=== PATIENT | male | born 1970 | race Caucasian/White ===

== ENCOUNTER 2018-07-06 10:46 | Inpatient (IN) | payer BC, MEDICAID ==
[2018-07-06 11:37] LABS: ABS Basophils 0.1 10^3/ul (0-0.2); ABS Eosinophils 0 10^3/ul (0-0.6); ABS Lymphocytes 1.4 10^3/ul (1.0-4.8); ABS Monocytes 0.8 10^3/ul (0-0.8); ABS Neutrophils 10.2 10^3/ul (1.5-7.7); ABS Nucleated RBC 0.1 10^3/ul; Eosinophil % 0.1 % (0-6); Hematocrit 44 % (42-52); Hemoglobin 15.2 g/dl (14.0-18.0); Lymphocyte % 11.4 % (25-47); Mean Corpuscular HGB Conc 34 g/dl (31-36); Mean Corpuscular Hemoglobin 30 pg (27-31); Mean Corpuscular Volume 87 fL (80-94); Mean Platelet Volume 7.4 um3 (7.4-10.4); Nucleated Red Blood Cells % 0.6; Platelet Count 296 10^3/ul (150-450); Red Blood Count 5.13 10^6/ul (4.00-5.40); Red Cell Distribution Width 14 % (10.5-15); White Blood Count 12.5 10^3/ul (3.5-10.8)
[2018-07-06 11:51] LABS: EGFR Non-African American 97.1 (>60)
--- NOTE | 2018-07-06 12:13 | ED ---
Psychiatric Complaint - HPI Summary HPI Summary: This is scribe Louis Attebregina documenting for attending Oni Snow MD. Pt is a 47 y/o M presents to ED with psychiatric complaint. Assoc. Sx: confusion. Denies: fever. Patient reports that he really wants his brother to be present because he knows the full story. His family is concerned for him that he may have HI secondary to issues with ex . He reports coming to the ED to convince family that he is not going to hurt anyone. Patient was not answering his brothers phone calls this AM and was found walking 6 miles from his home en route to his ex 's house. He reportedly had a shirt and an AA pamphlet. PMHx: bipolar. Meds: HTCZ, potassium. Brother reports he has been off of meds for his bipolar disorder for 8-10 years in which he has experienced a steady decline in his mental health. Patient reports having gotten a tattoo on his R foot in [place]. PMHx: anger issues. Denies SI. Denies HI but reports violent tendencies. I, Dr. Snow, personally performed the services described in this documentation as scribed in my presence and it is both accurate and complete. - History Of Current Complaint Chief Complaint: EDMentalHealth Time Seen by Provider: 07/06/18 11:00 Hx Obtained From: Patient Onset/Duration: Gradual Onset, Lasting Weeks, Still Present Timing: Constant Aggravating Factor(s): Recent Stress Alleviating Factor(s): Nothing Associated Signs And Symptoms: Positive: Confused Related History: Positive For: Prior Psychiatric Issues Has Homicidal: Denies: Thoughts - Allergies/Home Medications Allergies/Adverse Reactions: Allergies Allergy/AdvReac Type Severity Reaction Status Date / Time No Known Allergies Allergy Verified 07/06/18 10:48 PMH/Surg Hx/FS Hx/Imm Hx Previously Healthy: No - bipolar disorder off medication Cardiovascular History: Reports: Hx Hypertension Infectious Disease History: Yes Infectious Disease History: Denies: Traveled Outside the [place] in Last 30 Days - Family History Known Family History: Positive: Other - Bipolar - Social History Alcohol Use: Rare Substance Use Type: Reports: None Smoking Status (MU): Unknown if Ever Smoked - Pt is confused Review of Systems Negative: Fever Gastrointestinal: Negative Genitourinary: Negative Neurological: Negative Positive: Other - POS: confused. All Other Systems Reviewed And Are Negative: Yes Physical Exam - Summary Physical Exam Summary: Appearance: Well appearing, no pain distress Skin: warm, dry, reflects adequate perfusion Head/face: normal Eyes: EOMI, ALFIE ENT: normal Neck: supple, non-tender Respiratory: CTA, breath sounds present Cardiovascular: RRR, pulses symmetrical Abdomen: non-tender, soft Bowel Sounds: present Musculoskeletal: normal, strength/ROM intact Neuro: normal, sensory motor intact, A&Ox3 Triage Information Reviewed: Yes Vital Signs On Initial Exam: Initial Vitals Temp Pulse Resp BP Pulse Ox 97.9 F 119 16 180/100 95 07/06/18 10:48 07/06/18 10:48 07/06/18 10:48 07/06/18 10:48 07/06/18 10:48 Vital Signs Reviewed: Yes Appearance: Positive: Well-Appearing, No Pain Distress Skin: Positive: Warm, Skin Color Reflects Adequate Perfusion, Dry Eyes: Positive: Normal ENT: Positive: Pharynx normal Respiratory/Lung Sounds: Positive: Clear to Auscultation Cardiovascular: Positive: RRR Musculoskeletal: Positive: Normal, Strength/ROM Intact Neurological: Positive: Normal, Sensory/Motor Intact, Alert, Oriented to Person Place, Time Psychiatric: Positive: Other - Flat affect. Disorganized thinking. Patient indicates hostile tendencies. AVPU Assessment: Alert - Randolph Coma Scale Best Eye Response: 4 - Spontaneous Best Motor Response: 6 - Obeys Commands Best Verbal Response: 5 - Oriented Coma Scale Total: 15 Diagnostics - Vital Signs Vital Signs Temp Pulse Resp BP Pulse Ox 07/06/18 11:55 99.5 F 81 16 175/97 99 07/06/18 10:48 97.9 F 119 16 180/100 95 - Laboratory Lab Results: Lab Results 07/06/18 07/06/18 Range/Units 11:11 11:15 WBC 12.5 H (3.5-10.8) 10^3/ul RBC 5.13 (4.00-5.40) 10^6/ul Hgb 15.2 (14.0-18.0) g/dl Hct 44 (42-52) % MCV 87 (80-94) fL MCH 30 (27-31) pg MCHC 34 (31-36) g/dl RDW 14 (10.5-15) % Plt Count 296 (150-450) 10^3/ul MPV 7.4 (7.4-10.4) um3 Neut % (Auto) 81.7 (38-83) % Lymph % (Auto) 11.4 L (25-47) % [place] % (Auto) 6.3 (0-7) % Eos % (Auto) 0.1 (0-6) % Baso % (Auto) 0.5 (0-2) % Absolute Neuts (auto) 10.2 H (1.5-7.7) 10^3/ul Absolute Lymphs (auto) 1.4 (1.0-4.8) 10^3/ul Absolute Monos (auto) 0.8 (0-0.8) 10^3/ul Absolute Eos (auto) 0 (0-0.6) 10^3/ul Absolute Basos (auto) 0.1 (0-0.2) 10^3/ul Absolute Nucleated RBC 0.1 10^3/ul Nucleated RBC % 0.6 Sodium 139 (135-145) mmol/L Potassium 3.7 (3.5-5.0) mmol/L Chloride 101 (101-111) mmol/L Carbon Dioxide 28 (22-32) mmol/L Anion Gap 10 (2-11) mmol/L BUN 12 (6-24) mg/dL Creatinine 0.84 (0.67-1.17) mg/dL Est GFR ( Amer) 117.5 (>60) Est GFR (Non-Af Amer) 97.1 (>60) BUN/Creatinine Ratio 14.3 (8-20) Glucose 131 H (70-100) mg/dL Calcium 9.7 (8.6-10.3) mg/dL Total Bilirubin 1.30 H (0.2-1.0) mg/dL AST 28 (13-39) U/L ALT 18 (7-52) U/L Alkaline Phosphatase 54 (34-104) U/L Total Protein 7.8 (6.4-8.9) g/dL Albumin 5.0 (3.2-5.2) g/dL Globulin 2.8 (2-4) g/dL Albumin/Globulin Ratio 1.8 (1-3) TSH Pending Salicylates Pending Acetaminophen Pending Serum Alcohol Pending Result Diagrams: 07/06/18 11:15 07/06/18 11:11 Lab Statement: Any lab studies that have been ordered have been reviewed, and results considered in the medical decision making process. Course/Dx - Course Course Of Treatment: Patient with history of bipolar disorder off his medications has been perseverating over a relationship with a woman. He indicates that he has been hostile the past. He states that he is here to ensure that he doesn't hurt anybody. He demonstrates disorganized thinking with concern for psychosis. He had medical clearance performed by me and then was evaluated by crisis. Following evaluation it was decided that he be admitted for further evaluation and treatment by psychiatry. - Differential Dx/Clinical Impression Differential Diagnosis/HQI/PQRI: Positive: Acute Psychosis, Alcohol Intoxication , Anxiety, Bipolar Disorder, Depression Provider Diagnosis: Bipolar disorder with psychotic features Discharge - Sign-Out/Discharge Documenting (check all that apply): Patient Departure - Discharge Plan Condition: Stable Disposition: ADMITTED TO [facility] Referrals: Consuelo Delcid NP [Primary Care Provider] - - Billing Disposition and Condition Condition: STABLE Disposition: Admitted to [facility]
[2018-07-06 12:30] LABS: Urine Appearance Clear; Urine Blood Negative (Negative); Urine Color Colorless; Urine Ketones Trace (Negative); Urine Protein Negative (Negative); Urine Specific Gravity 1.003 (1.010-1.030); Urine Urobilinogen Negative (Negative)
[2018-07-06] MEDS ORDERED: Al Hydrox/Mg Hydrox/Simet LIQ* 30 ML UDC PO PRN (14:48)
[2018-07-06] MEDS: Nicotine GUM* 2 MG PO PRN ×2 (17:59→22:25)
[2018-07-06] MEDS: Nicotine Patch Removal NOTE PATCH OFF SCH (22:21)
[2018-07-07] MEDS: Nicotine Inhaler* 10 MG AMP INH PRN ×4 (04:06→21:57)
[2018-07-07] MEDS ORDERED: OLANzapine TAB* 10 MG PO ONE (04:14)
[2018-07-07] MEDS: Nicotine GUM* 2 MG PO PRN ×4 (05:31→21:57)
[2018-07-07] MEDS: Nicotine PATCH 14 MG/24 HR* PATCH TRANSDERM SCH (08:51)
[2018-07-07] MEDS: Vitamin THERAPEUTIC TAB PO SCH (08:52)
[2018-07-07] MEDS: Acetaminophen TAB* 325 MG PO PRN (11:37)
[2018-07-07] MEDS: Mouth Piece, Nicotine* 1 EACH CARTRIDGE INH SCH (11:37)
[2018-07-07] MEDS: OLANzapine TAB* 10 MG PO SCH (21:53)
[2018-07-07] MEDS: Lithium Carbonate TAB* 300 MG PO SCH (21:54)
[2018-07-07] MEDS: Nicotine Patch Removal NOTE PATCH OFF SCH (21:59)
--- NOTE | 2018-07-07 23:30 | HP ---
HISTORY AND PHYSICAL: DATE OF ADMISSION: 07/06/18 IDENTIFYING DATA: Avtar is a 47-year-old , unemployed, domiciled male who was referred by his brother and he was admitted on emergency status. SOURCE OF INFORMATION: Patient presents as psychotic and he is a poor historian. This note is dictated based on review of admission data and limited interview with the patient. 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 Patient related, that on the day he presented, he was walking from [place] towards [place] to get a ride to Jazmin' s house in [place] when he was met by his brother who had gone to his house to check on him and not seeing him started looking for him. Notes indicate that the brother drove the patient back home. At home, the patient got out of the car, took all his clothes off, and threw a hunting knife that he had hidden on his person in the bushes. His brother, Geovanny, called the police and brought him to the hospital. During his evaluation, the patient was disorganized, making bizarre sexual statements, saying he was on his way to [place] this morning to have sex with Jazmin and that he is not butts. Then, he stated "we can cut through the jose roberto, I do not remember the last time I masturbated, I think it was a decade ago here in the ED, I cannot remember what happened last time, I do not remember when I last slept." REVIEW OF PSYCHIATRIC SYMPTOMS: The patient reports previous diagnosis of depression but denies having felt depressed in recent months. He endorses excessive worrying, irritability, muscle tension, he was prescribed clonazepam and alprazolam at different times in the past by his primary care provider, Consuelo Delcid, nurse practitioner, at [facility]. He has diagnosis of bipolar disorder, has had periods of dominik with insomnia, decreased need for sleep, increased goal-directness, hypersexuality and other other activities with potential for consequences, racing thoughts, pressured speech, and grandiosity. Patient also reports that he is a recovering alcoholic that he started drinking casually in high school, became a binge drinker in college until separation from his in January 2014. He has been sober since June 2017. He does smoke cannabis on occasions. He denies the use of other illicit drugs. PAST PSYCHIATRIC HISTORY: The patient reports this is his first inpatient psychiatric admission. At age 16, he had this first manic/psychotic break while he was in college. His parents took him home to an emergency room in [place], [place], where he was evaluated and was referred for outpatient psychiatric treatment. He has had trials of lithium and Depakote in the past that he said he self-discontinued because of sexual side effect. He denies previous chago suicide attempt. He denies any history of violence. PAST MEDICAL HISTORY: Remarkable for hypertension, for which he is on Hydrochlorothiazide and Potassium supplementation. He is followed at [facility] by Consuelo Delcid, family nurse practitioner. REVIEW OF MEDICAL SYMPTOMS: Negative. PHYSICAL EXAMINATION GENERAL: He is a well-appearing 47-year-old white male who does not appear to be in any acute physical distress. He is alert and oriented x3. ADMISSION VITAL SIGNS: Blood pressure 125/97, pulse 81, respirations 16, temperature 99.5. HEENT: Head: Atraumatic, normocephalic, symmetrical. Eyes: PERRLA. Tympanic membranes intact. Sclerae anicteric. Conjunctivae clear. NECK: Trachea midline, freely mobile. No cervical lymphadenopathy. No nuchal rigidity. LUNGS: Clear to auscultation bilaterally. HEART: Regular rate and rhythm. S1, S2. No murmurs, gallops, or rubs. BREASTS: No mass or discharge. ABDOMEN: Soft, nontender. No masses, organomegaly, or rebound tenderness. No scars noted. Active bowel sounds in all 4 quadrants. NEUROLOGIC: Cranial nerves II through XII are intact. Cerebellar function intact. Muscle strength grade 5/5 in all 4 extremities. STRUCTURAL EXAM: The patient examined in both supine and upright positions. No gross AP or lateral asymmetry. Gait and movement are within normal limits. GENITAL: Exam not performed. RECTAL: Exam not performed. SKIN: Skin texture, turgor, and pigmentation are within normal limits. He has male pattern baldness. LABORATORY DATA: Laboratories on admission: CBC shows WBC of 12.5, lymphocyte percentage of 11.4, and absolute neutrophil is 10.2. Complete metabolic panel shows nonfasting glucose of 131 and total bilirubin was 1.30. Urinalysis shows specific gravity of 1.003 and trace of ketones. Urine toxicology screen is negative for all the tested substances. FAMILY HISTORY: Family history of bipolar disorder in 2 of his brothers and his maternal grandfather and in a maternal cousin. His father and paternal grandfather also both had bipolar disorder and his maternal great- grandfather completed suicide. PERSONAL AND SOCIAL HISTORY: Avtar was born in [place], [place]. He grew up with both his parents who are now both . He has an older brother, a twin brother, a younger sister, and an a youngest brother. He has graduated from high school, attended [employer] where he obtained a bachelor of science in accounting. He was for about 16 years. He has a son who is 17 years old. Relationship with both his ex- and son are strained. Het worked for [employer] until last month when he asserts he was fired after discovering possible accounting fraud that the prollie was engaging in. He reports having been actively looking for a job. 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 He identified as being heterosexual, reports that he is now currently in a relationship with "Jazmin," and they frequently have satisfying sex. Patient is worried about starting medications because he said he wanted to maintain his peak performance. MENTAL STATUS EXAMINATION: Finds a 47-year-old white male with balding hair pattern and rimmed glasses who looks his stated age. He is poorly groomed, unshaven, he walks around wrapped in bedsheet. He makes intense eye contact. He frequently looks over his shoulders. He presents as a psychotically related. He exhibits normal psychomotor activity. No abnormal movements observed. Speech is spontaneous; normal rate, rhythm, and volume. His affect is anxious. Mood is dysphoric. Thought process remarkable for evidence of paranoid and persecutory delusions. He denies auditory or visual hallucinations. His insight and judgment are grossly impaired. Impulse control is fair in the setting. He is alert. He is oriented to time, place, and person. Attention, memory, and concentration are all poor. Fund of knowledge is adequate. Intelligence is estimated to be in normal average range. SUMMARY: First inpatient psychiatric admission for this 47-year-old male with documented history of bipolar and anxiety disorders; no current outpatient care and no current medication trials, who was referred by his brother in a manic state and was admitted for safety after he was found carrying a knife. Medical history is remarkable for high blood pressure. There is a significant family history of bipolar disorder on both sides of his family. Patient has a past history of alcohol dependence in remission. He admits to smoking cannabis occasionally. He describes stressors of a recent termination from a job, strained relationship with his ex- and with his son and lack of financial support. DIAGNOSTIC IMPRESSIONS: 1. Bipolar 1 disorder. Current episode manic, severe, with psychotic features. 2. Alcohol dependence, in sustained remission. 3. Unspecified anxiety disorder. 4. Cannabis dependence. TREATMENT PLAN: 1. Admit to mental health unit, 15-minute checks, full code status. Legal status is emergency. 2. Initial comprehensive milieu individual and group psychotherapeutic supports. 3. Medication management. Patient has consented to trial of lithium and Olanzapine to regulate mood and sleep after hearing of the indication, risks, benefits, side effects, and alternatives. 4. Discharge planning will involve connecting him with outpatient psychiatric providers when he is psychiatrically stable and ready for discharge. [id number]/CPS #: [id number] LEAH
[2018-07-08] MEDS: Nicotine GUM* 2 MG PO PRN ×4 (09:08→21:04)
[2018-07-08] MEDS: Vitamin THERAPEUTIC TAB PO SCH (09:08)
[2018-07-08] MEDS: Lithium Carbonate TAB* 300 MG PO SCH ×2 (09:08→21:01)
[2018-07-08] MEDS: Acetaminophen TAB* 325 MG PO PRN (09:09)
[2018-07-08] MEDS: Nicotine Inhaler* 10 MG AMP INH PRN ×4 (09:10→21:04)
[2018-07-08] MEDS: Nicotine PATCH 14 MG/24 HR* PATCH TRANSDERM SCH (09:14)
--- NOTE | 2018-07-08 12:17 | PN ---
Subjective - Subjective Date of Service: 07/08/18 Service Type: [id number] Hosp care 15 min low complexity Subjective: Patient was seen by self, discussed with treatment team, chart was reviewed. Patient has been compliant with his medications, no reported side effects. Patient reports some improvement in his symptoms, less irritable, less disorganized, less manic, some improvement in sleep, less paranoia. Patient sleeping has been better than before. Patient eating has been fair. Patient has been cooperative with staff and attending some groups. Patient behavior has been in better control. Patient mood was anxious and dysphoric. Patient has been reporting no suicidal or homicidal ideation. No psychotic symptoms of hallucinations. Objective - Appearance Appearance: Healthy Appearing Dysmorphic Features: No Hygiene: Normal Grooming: Fairly Well Kept - Behavior Psychomotor Activities: Abnormal-Decreased - Attitude and Relatedness Attitude and Relatedness: Superficially Cooperative Eye Contact: Fair - Speech Quality: Unpressured Latencies: Long Quantity: Terse - Mood Patient's Decription of Mood: "better" - Affect Observed Affect: Constricted Affect Consistent with: Dysphoria - Thought Process Patient's Thought Process: Goal Directed Thought Content: Yes Paranoid Ideation, No Passive Wish, No Suicidal Planning, No Homicidal Ideation - Sensorium Experiencing Hallucinations: No, Sensorium is Clear Type of Hallucinations: Visual: No, Auditory: No, Command: No - Level of Consciousness Level of Consciousness: Alert Orientation: Yes Intact, Yes Orientated to Time, Yes Orientated to Place, Yes Orientated to Person - Impulse Control Impulse Control: Intact - Insight and Judgement Insight and Judgement: Poor - but improving - Group Participation Particating in Group Activities: Yes - Medication Management Medication Management Adherence: Yes Assessment - Assessment Merits Inpatient Hospitalization: For Immediate Safety, For Stabilization, For Discharge Planning Inpatient DSM-V Dx: F31.2 Clinical Impression: First inpatient psychiatric admission for this 47-year-old male with documented history of bipolar disorder and anxiety disorder. No current outpatient care and no current medication trials, who was referred by his brother in a manic state and was admitted for safety after he was found carrying a knife. Medical history is remarkable for high blood pressure. There is a significant family history of bipolar disorder on both sides of his family. Patient has a past history of alcohol abuse and does admit to still smoking cannabis occasionally. He describes stressors of a recent termination from a job. Strained relationship with his ex- and with his son and lack of financial support. Plan - Plan Treatment Plan: Name: VANESSA KAMARA Birthdate: 1970 [id number] - Patient continues to be hospitalized due to recent suicidal thoughts with plan , mood instability, anxiety and impulsivity. - Patient's medications were continued after informed consent with Zyprexa 10 mg at bedtime and [place] was increased to 450 mg BID. - Hospitalist Consult was called for HTN, as patient has high blood pressure and was reportedly taking Lisinopril/Hctz 20/12.5 mg once daily and KCl+ 20 me q BID. - Patient will be monitored for improvement and side effects. Risk and benefits were discussed. - Patient was encouraged to continue his participation in the milieu, group and individual therapy. Medications: Current Medications Acetaminophen (Tylenol Tab*) 650 mg PO Q4H PRN PRN Reason: for pain; or Temp >101 F Last Admin: 07/08/18 09:09 Dose: 650 mg Al Hydrox/Mg Hydrox/Simethicone (Maalox Plus*) 30 ml PO Q4H PRN PRN Reason: INDIGESTION Device (Nicotine Mouth Piece*) 1 each INH .[facility] Last Admin: 07/07/18 11:37 Dose: 1 each [place] Carbonate ([place] Carbonate Tab*) 300 mg PO BID [facility] Last Admin: 07/08/18 09:08 Dose: 300 mg Multivitamins (Theragran Tab*) 1 tab PO DAILY [facility] Last Admin: 07/08/18 09:08 Dose: 1 tab Nicotine (Nicotine Inhaler*) 10 mg INH Q2H PRN PRN Reason: CRAVING Last Admin: 07/08/18 11:57 Dose: 10 mg Nicotine (Nicotine Patch 14 Mg/24 Hr*) 1 patch TRANSDERM DAILY [facility] Last Admin: 07/08/18 09:14 Dose: Not Given Nicotine Polacrilex (Nicotine Gum*) 2 mg PO Q2H PRN PRN Reason: CRAVING Last Admin: 07/08/18 11:57 Dose: 2 mg Olanzapine (Zyprexa Tab*) 10 mg PO BEDTIME [facility] Last Admin: 07/07/18 21:53 Dose: 10 mg Pharmacy Profile Note (Nicotine Patch Removal Note*) 1 note PATCH OFF 2100 [facility] Last Admin: 07/07/18 21:59 Dose: Not Given
[2018-07-08] MEDS: amLODIPine TAB* 5 MG PO SCH (18:09)
--- NOTE | 2018-07-08 20:28 | CONS ---
CONSULTATION NOTE: DATE OF CONSULT: 07/08/18 REASON FOR CONSULT: Hypertension and psychiatry team wondering why HCTZ and potassium supplementation has been discontinued since his presentation in the ED. HISTORY OF PRESENT ILLNESS/HOSPITAL COURSE: The patient is a 47-year-old gentleman with history of bipolar disorder type 1, alcohol dependence , and anxiety disorder as well as hypertension, who was brought to the ED by his brother on 07/06/18 for agitation and not answering his brother's phone calls the morning of his presentation in the ED. He also reportedly only had a shirt and a pamphlet with him at that time. He mentioned that he was walking from [place] towards [place] to get a ride to Jazmin's house in [place] and Jazmin is a woman that he is supposedly obsessed on having some sexual relationships with. He then subsequently met his brother who had gone to his house to check on him and not seeing him, started looking for him. His brother , Geovanny, then subsequently called the police when he could not find Avtar and brought him to the hospital and he himself came with his brother to prove to him that he is not going to hurt himself nor anyone. However, upon psychiatric evaluation, he was admitted by Psychiatry to the [facility] for unknown reasons. His HCTZ has not been continued since. PAST MEDICAL AND SURGICAL HISTORY: 1. Bipolar I disorder. 2. Alcohol dependence 3. Anxiety disorder. 4. Cannabis dependence. 5. Hypertension, on HCTZ and potassium supplementations at home. No known previous surgical history. ALLERGIES: NKDA. FAMILY HISTORY: Reports a family history of bipolar disorder in 2 of his brothers and maternal grandfather and maternal cousin. His father and paternal grandfather also had bipolar disorder and maternal great grandfather committed suicide. Diabetes mellitus in his paternal grandfather. Skin and esophageal cancer in his father who was also a previous smoker. Bladder cancer , his mother. SOCIAL HISTORY: He mentions previous history of alcohol abuse, but claims that he has been sober for at least 1 year. Denies any history of significant cigarette smoking. He has had some history with smoking marijuana. Denies any history of IV drug use nor other illicit drug use. REVIEW OF SYSTEMS: He denied any headaches, dizziness, fevers, chills, nausea, vomiting, chest pain, shortness of breath, increased cough or sputum production , abdominal pain, diarrhea, constipation, pain and/or increased frequency on urination, myalgias, arthralgias, throat pain, or new skin lesions. The rest of the 14-point review of systems were otherwise unremarkable. PHYSICAL EXAM: Shows the most recent vital signs of records with temperature of 98.5 degrees Fahrenheit, 78 beats per minute heart rate, 16 per minute respiratory rate, saturating at 100% on room air, blood pressure of 158/85. General Appearance: The patient is awake, alert, and oriented x3, not in acute distress. HEENT: Normocephalic, atraumatic. PERRLA. Extraocular muscles intact. Negative for icterus. Moist oral mucosa. Negative throat erythema. Neck is soft, supple with no cervical lymphadenopathy. No JVD. Heart: S1, S2 within normal limits. Regular rate and rhythm. No murmurs, rubs, and gallops. Chest: Clear to auscultation bilaterally. Good air entry. No wheezes, rales, or rhonchi. Abdomen is soft, nondistended, nontender. Normoactive bowel sounds times 4 quadrants. Extremities: No cyanosis, clubbing, or edema. Psychiatric: No active psychosis or hallucinations at this time. DIAGNOSTIC STUDIES/LAB DATA: Most recent and pertinent laboratories show CBC with a WBC mildly elevated at 12.5. Sodium and potassium levels were found to be normal. BUN and creatinine were normal. Glucose mildly elevated at 131. Total bilirubin at 1.30. The rest of the LFTs are normal. LDL of 82. Triglyceride of 77. Urinalysis appears unremarkable with a specific gravity of 1.003. Urine tox screen is negative. ASSESSMENT AND PLAN: Hypertension, stage 2. At this time, we will place the patient on amlodipine and would recommend a heart-healthy diet if needed and after 2 days of observation on being on amlodipine and if his blood pressure is still above 140/90, one can start either a low dose CARLOS inhibitor for synergy. I will not prescribe a diuretic at this point to avoid replenishing his potassium stores with diuresis of electrolytes. I would recommend to continuously observe his blood pressure per [facility] protocol and please call us with any questions. Thank you for having us participate in his care and management. We will follow the blood pressure along with you. Please do call us if you have any questions and/or concerns. [id number]/CPS #: [id number] MTDD
[2018-07-08] MEDS: OLANzapine TAB* 10 MG PO SCH (21:00)
[2018-07-08] MEDS: Nicotine Patch Removal NOTE PATCH OFF SCH (22:00)
[2018-07-09] MEDS: amLODIPine TAB* 5 MG PO SCH (08:00)
[2018-07-09] MEDS: Lithium Carbonate TAB* 300 MG PO SCH ×2 (08:01→20:41)
[2018-07-09] MEDS: Nicotine PATCH 14 MG/24 HR* PATCH TRANSDERM SCH (08:03)
[2018-07-09] MEDS: Vitamin THERAPEUTIC TAB PO SCH (08:03)
[2018-07-09] MEDS ORDERED: Mouth Piece, Nicotine* 1 EACH CARTRIDGE ONE (08:07)
[2018-07-09] MEDS: Nicotine Inhaler* 10 MG AMP INH PRN ×2 (08:08→13:55)
[2018-07-09] MEDS: Nicotine GUM* 2 MG PO PRN ×3 (08:08→19:38)
[2018-07-09] MEDS: Acetaminophen TAB* 325 MG PO PRN ×2 (10:00→19:37)
--- NOTE | 2018-07-09 13:32 | PN ---
Subjective - Subjective Date of Service: 07/09/18 Service Type: 45046 Hosp care 15 min low complexity Subjective: Patient was seen by self, discussed with treatment team, chart was reviewed. Patient has been compliant with his medications, no reported side effects. Patient reports some improvement in his symptoms, less irritable, less disorganized, less manic, improvement in sleep, no paranoia. Patient sleeping has been better. Patient eating has been fair. Patient has been cooperative with staff and attending some groups. Patient behavior has been in better control. Patient mood was less anxious and dysphoric. Patient has been reporting no suicidal or homicidal ideation. No psychotic symptoms of hallucinations. Met with patient's brother who was concerned about patient as he was present during the time of hospitalization. treatment and discharge planning were discussed with presence of patient and his brother. Patient was accepting of it but brother was hesitant about that and stated "family would not agree with the discharge on Sunday". Also discussed about order of protection that his ex- will be placing against him and questionable application of emergency sole custody for which patient will need to appear in the court. Patient states that he is disappointed about that but will follow the procedure. Patient reports that he has to set his priority and his son and job comes first. Patient will search for a job to support his son and then he still wants to keep friendship with this person Jazmin. But not sure if they are going to be more than friends. Patient also stated that he will keep his communication better with his brothers in [place] through phone and meet them intermittently. Objective - Appearance Appearance: Healthy Appearing Dysmorphic Features: No Hygiene: Normal Grooming: Fairly Well Kept - Behavior Psychomotor Activities: Normal Exhibits Abnormal Movement: No - Attitude and Relatedness Attitude and Relatedness: Cooperative Eye Contact: Fair - Speech Quality: Unpressured Latencies: Normal Quantity: Appropriate - Mood Patient's Decription of Mood: "Okay" - Thought Process Patient's Thought Process: Goal Directed Thought Content: No Passive Wish, No Suicidal Planning, No Homicidal Ideation, No Paranoid Ideation - Sensorium Experiencing Hallucinations: No, Sensorium is Clear Type of Hallucinations: Visual: No, Auditory: No, Command: No - Level of Consciousness Level of Consciousness: Alert Orientation: Yes Intact, Yes Orientated to Time, Yes Orientated to Place, Yes Orientated to Person - Impulse Control Impulse Control: Intact - Insight and Judgement Insight and Judgement: Fair - is compliant with treatment and showing understanding in his illness - Group Participation Particating in Group Activities: Yes - Medication Management Medication Management Adherence: Yes Assessment - Assessment Merits Inpatient Hospitalization: For Immediate Safety, For Stabilization, For Discharge Planning Inpatient DSM-V Dx: F31.2 Clinical Impression: First inpatient psychiatric admission for this 47-year-old male with documented history of bipolar disorder and anxiety disorder. No current outpatient care and no current medication trials, who was referred by his brother in a manic state and was admitted for safety after he was found carrying a knife. Medical history is remarkable for high blood pressure. There is a significant family history of bipolar disorder on both sides of his family. Patient has a past history of alcohol abuse and does admit to still smoking cannabis occasionally. He describes stressors of a recent termination from a job. Strained relationship with his ex- and with his son and lack of financial support. Plan - Plan Treatment Plan: Name: VANESSA KAMARA Birthdate: 1970 [id number] - Patient continues to be hospitalized due to recent suicidal thoughts with plan , mood instability, anxiety and impulsivity. - Patient's medications were continued at Zyprexa 10 mg at bedtime and Duque at 450 mg BID. - Hospitalist started patient on Amlodipine 10 mg PO Daily and has shown improvement in B.P, will continue to monitor. - Patient will be monitored for improvement and side effects. Risk and benefits were discussed. - Patient was encouraged to continue his participation in the milieu, group and individual therapy. Medications: Current Medications Acetaminophen (Tylenol Tab*) 650 mg PO Q4H PRN PRN Reason: for pain; or Temp >101 F Last Admin: 07/09/18 10:00 Dose: 650 mg Al Hydrox/Mg Hydrox/Simethicone (Maalox Plus*) 30 ml PO Q4H PRN PRN Reason: INDIGESTION Amlodipine Besylate (Norvasc Tab*) 10 mg PO DAILY [facility] Last Admin: 07/09/18 08:00 Dose: 10 mg Device (Nicotine Mouth Piece*) 1 each INH .CARTRIDGE [facility] Last Admin: 07/07/18 11:37 Dose: 1 each Duque Carbonate (Duque Carbonate Tab*) 450 mg PO BID [facility] Last Admin: 07/09/18 08:01 Dose: 450 mg Multivitamins (Theragran Tab*) 1 tab PO DAILY [facility] Last Admin: 07/09/18 08:03 Dose: 1 tab Nicotine (Nicotine Inhaler*) 10 mg INH Q2H PRN PRN Reason: CRAVING Last Admin: 07/09/18 08:08 Dose: 10 mg Nicotine (Nicotine Patch 14 Mg/24 Hr*) 1 patch TRANSDERM DAILY [facility] Last Admin: 07/09/18 08:03 Dose: 1 patch Nicotine Polacrilex (Nicotine Gum*) 2 mg PO Q2H PRN PRN Reason: CRAVING Last Admin: 07/09/18 08:08 Dose: 2 mg Olanzapine (Zyprexa Tab*) 10 mg PO BEDTIME [facility] Last Admin: 07/08/18 21:00 Dose: 10 mg Pharmacy Profile Note (Nicotine Patch Removal Note*) 1 note PATCH OFF 2100 [facility] Last Admin: 07/08/18 22:00 Dose: Not Given
[2018-07-09] MEDS: Doxazosin TAB* 2 MG PO SCH (16:09)
[2018-07-09] MEDS: OLANzapine TAB* 10 MG PO SCH (20:41)
[2018-07-09] MEDS: Nicotine Patch Removal NOTE PATCH OFF SCH (22:02)
[2018-07-10] MEDS: Nicotine PATCH 14 MG/24 HR* PATCH TRANSDERM SCH (09:04)
[2018-07-10] MEDS: Vitamin THERAPEUTIC TAB PO SCH (09:05)
[2018-07-10] MEDS: amLODIPine TAB* 5 MG PO SCH (09:05)
[2018-07-10] MEDS: Doxazosin TAB* 2 MG PO SCH (09:06)
[2018-07-10] MEDS: Lithium Carbonate TAB* 300 MG PO SCH (09:06)
[2018-07-10] MEDS: Nicotine GUM* 2 MG PO PRN ×4 (09:10→20:38)
[2018-07-10] MEDS: Hydrochlorothiazide TAB* 25 MG PO SCH (11:15)
[2018-07-10] MEDS: Lisinopril TAB* 10 MG PO SCH (11:15)
--- NOTE | 2018-07-10 11:31 | PN ---
Subjective Date of Service: 07/10/18 Interval History: Pt is feeling well. He states he does not like all of the attention he has been getting from staff and providers. He states he has had some headache earlier this AM but it is now resolved. He denies any CP or SOB. He also states he has had a longstanding h/o white coat hypertension and wonders if his BP is up from the constant monitoring and being in the hospital. Objective Active Medications: Acetaminophen (Tylenol Tab*) 650 mg PO Q4H PRN PRN Reason: for pain; or Temp >101 F Last Admin: 07/09/18 19:37 Dose: 650 mg Al Hydrox/Mg Hydrox/Simethicone (Maalox Plus*) 30 ml PO Q4H PRN PRN Reason: INDIGESTION Amlodipine Besylate (Norvasc Tab*) 10 mg PO DAILY [facility] Last Admin: 07/10/18 09:05 Dose: 10 mg Device (Nicotine Mouth Piece*) 1 each INH .[facility]TRIDGE [facility] Last Admin: 07/07/18 11:37 Dose: 1 each Divalproex Sodium (Depakote Dr Tab(*)) 500 mg PO BID [facility] Doxazosin Mesylate (Cardura Tab*) 2 mg PO DAILY [facility] Last Admin: 07/10/18 09:06 Dose: 2 mg Hydrochlorothiazide (Hydrodiuril Tab*) 12.5 mg PO DAILY [facility] Last Admin: 07/10/18 11:15 Dose: 12.5 mg Lisinopril (Prinivil Tab*) 10 mg PO DAILY [facility] Last Admin: 07/10/18 11:15 Dose: 10 mg Multivitamins (Theragran Tab*) 1 tab PO DAILY [facility] Last Admin: 07/10/18 09:05 Dose: 1 tab Nicotine (Nicotine Inhaler*) 10 mg INH Q2H PRN PRN Reason: CRAVING Last Admin: 07/09/18 13:55 Dose: 10 mg Nicotine (Nicotine Patch 14 Mg/24 Hr*) 1 patch TRANSDERM DAILY [facility] Last Admin: 07/10/18 09:04 Dose: 1 patch Nicotine Polacrilex (Nicotine Gum*) 2 mg PO Q2H PRN PRN Reason: CRAVING Last Admin: 07/10/18 09:10 Dose: 2 mg Olanzapine (Zyprexa Tab*) 10 mg PO BEDTIME [facility] Last Admin: 07/09/18 20:41 Dose: 10 mg Pharmacy Profile Note (Nicotine Patch Removal Note*) 1 note PATCH OFF 2100 [facility] Last Admin: 07/09/18 22:02 Dose: Not Given Vital Signs - 8 hr 07/10/18 07:46 Temperature 97.6 F Pulse Rate 107 Respiratory 16 Rate Blood Pressure 184/105 (mmHg) O2 Sat by Pulse 100 Oximetry Oxygen Devices in Use Now: None Appearance: Middle aged male lying in bed, NAD Eyes: No Scleral Icterus Ears/Nose/Mouth/Throat: Mucous Membranes Moist Respiratory: Symmetrical Chest Expansion and Respiratory Effort, Clear to Auscultation Cardiovascular: NL Sounds; No Murmurs; No JVD, RRR, No Edema Abdominal: NL Sounds; No Tenderness; No Distention Extremities: No Clubbing, Cyanosis Skin: No Nodules or Sclerosis, - - scabs noted to feet bilaterally Neurological: Alert and Oriented x 3 Result Diagrams: 07/06/18 11:15 07/06/18 11:11 Additional Lab and Data: Lab Results 07/06/18 07/06/18 Range/Units 11:11 11:15 WBC 12.5 H (3.5-10.8) 10^3/ul RBC 5.13 (4.00-5.40) 10^6/ul Hgb 15.2 (14.0-18.0) g/dl Hct 44 (42-52) % MCV 87 (80-94) fL MCH 30 (27-31) pg MCHC 34 (31-36) g/dl RDW 14 (10.5-15) % Plt Count 296 (150-450) 10^3/ul MPV 7.4 (7.4-10.4) um3 Neut % (Auto) 81.7 (38-83) % Lymph % (Auto) 11.4 L (25-47) % [place] % (Auto) 6.3 (0-7) % Eos % (Auto) 0.1 (0-6) % Baso % (Auto) 0.5 (0-2) % Absolute Neuts (auto) 10.2 H (1.5-7.7) 10^3/ul Absolute Lymphs (auto) 1.4 (1.0-4.8) 10^3/ul Absolute Monos (auto) 0.8 (0-0.8) 10^3/ul Absolute Eos (auto) 0 (0-0.6) 10^3/ul Absolute Basos (auto) 0.1 (0-0.2) 10^3/ul Absolute Nucleated RBC 0.1 10^3/ul Nucleated RBC % 0.6 Sodium 139 (135-145) mmol/L Potassium 3.7 (3.5-5.0) mmol/L Chloride 101 (101-111) mmol/L Carbon Dioxide 28 (22-32) mmol/L Anion Gap 10 (2-11) mmol/L BUN 12 (6-24) mg/dL Creatinine 0.84 (0.67-1.17) mg/dL Est GFR ( Amer) 117.5 (>60) Est GFR (Non-Af Amer) 97.1 (>60) BUN/Creatinine Ratio 14.3 (8-20) Glucose 131 H (70-100) mg/dL Calcium 9.7 (8.6-10.3) mg/dL Total Bilirubin 1.30 H (0.2-1.0) mg/dL AST 28 (13-39) U/L ALT 18 (7-52) U/L Alkaline Phosphatase 54 (34-104) U/L Total Protein 7.8 (6.4-8.9) g/dL Albumin 5.0 (3.2-5.2) g/dL Globulin 2.8 (2-4) g/dL Albumin/Globulin Ratio 1.8 (1-3) TSH Pending Salicylates Pending Acetaminophen Pending Serum Alcohol Pending Assess/Plan/Problems-Billing Mr Mcghee is a 47 yo M who has a h/o HTN and bipolar disorder who was admitted to the [facility] with dominik. - Patient Problems (1) HTN (hypertension) Current Visit: Yes Status: Acute Code(s): I10 - ESSENTIAL (PRIMARY) HYPERTENSION SNOMED Code(s): 72320830 Comment: BP remains uncontrolled despite having added amlodpine and cardura. Will add lisinopril/HCTZ 08/30.5 and monitor the BP. If improved will likely stop the cardura and have the patient d/c on lisinopril/HCTZ and amlodipine. He will need close follow up with his PCP. BMP tomorrow to assess electrolytes. (2) Bipolar disorder Current Visit: Yes Status: Acute Comment: Management per psychiatry.
--- NOTE | 2018-07-10 11:33 | PN ---
Subjective - Subjective Date of Service: 07/10/18 Service Type: [id number] Hosp care 25 min moderate complexity Subjective: Patient was seen by self, discussed with treatment team, chart was reviewed. Patient has been compliant with his medications, no reported side effects. Patient reports appeared some what sad today but reports improvement in his symptoms, more regulated mood and behavior, improvement in sleep, no paranoia. Patient was served with order of protection from her ex . Patient has been avoiding so far to look into it and feels that he is not ready yet to look at it. But will read it when he is feeling better. Patient sleeping was better. Patient eating has been fair. Patient has been cooperative with staff and attending some groups. Patient behavior has been in better control. Patient has been reporting no suicidal or homicidal ideation. No psychotic symptoms of hallucinations. Patient's blood pressure continues to be elevated, discussed with Hospital and medications adjustments were made. Patient was educated about discontinuation of Marvin and switching it to Depakote due to interaction with his B.P medications, agreed with the plan. Objective - Appearance Appearance: Healthy Appearing Dysmorphic Features: No Hygiene: Normal Grooming: Fairly Well Kept - Behavior Psychomotor Activities: Normal Exhibits Abnormal Movement: No - Attitude and Relatedness Attitude and Relatedness: Cooperative Eye Contact: Fair - Speech Quality: Unpressured Latencies: Normal Quantity: Terse - Mood Patient's Decription of Mood: "Okay" - Affect Observed Affect: Depressed Affect Consistent with: Dysphoria - Thought Process Patient's Thought Process: Goal Directed Thought Content: No Passive Wish, No Suicidal Planning, No Homicidal Ideation, No Paranoid Ideation - Sensorium Experiencing Hallucinations: No, Sensorium is Clear Type of Hallucinations: Visual: No, Auditory: No, Command: No - Level of Consciousness Level of Consciousness: Alert Orientation: Yes Intact, Yes Orientated to Time, Yes Orientated to Place, Yes Orientated to Person - Impulse Control Impulse Control: Intact - Insight and Judgement Insight and Judgement: Fair - Group Participation Particating in Group Activities: Yes - Medication Management Medication Management Adherence: Yes Assessment - Assessment Merits Inpatient Hospitalization: For Immediate Safety, For Stabilization, For Discharge Planning Inpatient DSM-V Dx: F31.2 Clinical Impression: First inpatient psychiatric admission for this 47-year-old male with documented history of bipolar disorder and anxiety disorder. No current outpatient care and no current medication trials, who was referred by his brother in a manic state and was admitted for safety after he was found carrying a knife. Medical history is remarkable for high blood pressure. There is a significant family history of bipolar disorder on both sides of his family. Patient has a past history of alcohol abuse and does admit to still smoking cannabis occasionally. He describes stressors of a recent termination from a job. Strained relationship with his ex- and with his son and lack of financial support. Plan - Plan Treatment Plan: Name: VANESSA KAMARA Birthdate: 1970 [id number] - Patient continues to be hospitalized due to recent suicidal thoughts with plan , mood instability, anxiety and impulsivity. - Patient's medications were continued at Zyprexa 10 mg at bedtime, Marvin was discontinued and was started on Depakote 500mg BID with plan to titrate as toelrated. - Hospitalist started patient on Amlodipine 10 mg PO Daily, Doxazosin 2 mg Daily but continued to have elevated B.P and was restarted on his home medication Lisinopril and HCTZ. will continue to monitor. - Patient will be monitored for improvement and side effects. Risk and benefits were discussed. - Patient was encouraged to continue his participation in the milieu, group and individual therapy. Medications: Current Medications Acetaminophen (Tylenol Tab*) 650 mg PO Q4H PRN PRN Reason: for pain; or Temp >101 F Last Admin: 07/09/18 19:37 Dose: 650 mg Al Hydrox/Mg Hydrox/Simethicone (Maalox Plus*) 30 ml PO Q4H PRN PRN Reason: INDIGESTION Amlodipine Besylate (Norvasc Tab*) 10 mg PO DAILY [facility] Last Admin: 07/10/18 09:05 Dose: 10 mg Device (Nicotine Mouth Piece*) 1 each INH .CARTRIDGE [facility] Last Admin: 07/07/18 11:37 Dose: 1 each Divalproex Sodium (Depakote Dr Tab(*)) 500 mg PO BID [facility] Doxazosin Mesylate (Cardura Tab*) 2 mg PO DAILY [facility] Last Admin: 07/10/18 09:06 Dose: 2 mg Hydrochlorothiazide (Hydrodiuril Tab*) 12.5 mg PO DAILY [facility] Lisinopril (Prinivil Tab*) 10 mg PO DAILY [facility] Multivitamins (Theragran Tab*) 1 tab PO DAILY [facility] Last Admin: 07/10/18 09:05 Dose: 1 tab Nicotine (Nicotine Inhaler*) 10 mg INH Q2H PRN PRN Reason: CRAVING Last Admin: 07/09/18 13:55 Dose: 10 mg Nicotine (Nicotine Patch 14 Mg/24 Hr*) 1 patch TRANSDERM DAILY [facility] Last Admin: 07/10/18 09:04 Dose: 1 patch Nicotine Polacrilex (Nicotine Gum*) 2 mg PO Q2H PRN PRN Reason: CRAVING Last Admin: 07/10/18 09:10 Dose: 2 mg Olanzapine (Zyprexa Tab*) 10 mg PO BEDTIME [facility] Last Admin: 07/09/18 20:41 Dose: 10 mg Pharmacy Profile Note (Nicotine Patch Removal Note*) 1 note PATCH OFF 2100 [facility] Last Admin: 07/09/18 22:02 Dose: Not Given
[2018-07-10] MEDS: Acetaminophen TAB* 325 MG PO PRN (13:13)
--- NOTE | 2018-07-10 15:47 | PN ---
[facility]: Group Therapy Note - Service Type Service Type: 62022 Group Psychotherapy - Group Participation Patient Participating in Group: Yes Level of Group Participation: Attentive, Spontaneously Participate Relatedness to Group: Well Related - Attitude and Relatedness Attitude and Relatedness: Cooperative Eye Contact: Good - Additional Group Comments Group Comments: Avtar participated well. He was pleasant and easy to work with. He related well to the topic and had good information to contribute.
[2018-07-10] MEDS: OLANzapine TAB* 10 MG PO SCH (20:37)
[2018-07-10] MEDS: Divalproex DR TAB(*) 500 MG PO SCH (20:37)
[2018-07-10] MEDS: Nicotine Patch Removal NOTE PATCH OFF SCH (20:44)
[2018-07-10] MEDS ORDERED: Lithium Carbonate TAB* 300 MG PO SCH (21:00)
[2018-07-11] MEDS: Vitamin THERAPEUTIC TAB PO SCH (08:40)
[2018-07-11] MEDS: amLODIPine TAB* 5 MG PO SCH (08:40)
[2018-07-11] MEDS: Hydrochlorothiazide TAB* 25 MG PO SCH (08:41)
[2018-07-11] MEDS: Lisinopril TAB* 10 MG PO SCH (08:44)
[2018-07-11] MEDS: Divalproex DR TAB(*) 500 MG PO SCH ×2 (08:44→23:04)
[2018-07-11] MEDS: Doxazosin TAB* 2 MG PO SCH (08:45)
[2018-07-11] MEDS: Nicotine PATCH 14 MG/24 HR* PATCH TRANSDERM SCH (08:46)
[2018-07-11] MEDS: Nicotine GUM* 2 MG PO PRN ×3 (08:50→17:16)
--- NOTE | 2018-07-11 11:38 | PN ---
Subjective - Subjective Date of Service: 07/11/18 Service Type: 39686 Hosp care 15 min low complexity Subjective: Patient was seen by self, discussed with treatment team, chart was reviewed. Patient has been compliant with his medications, no reported side effects. Patient reports feeling better today and was able to laugh at times appropriately to conversation, reports improvement in his symptoms progressively. Patient reports more regulated mood and behavior, no paranoia. Patient reported tolerating Depakote with out difficulty but has been having consistently increased sleep at night of about 10 hours. Patient was able to go through court papers and is able to comprehend that he was going through his manic episode during that time and understands why his ex- got that order. Patient eating has been fair on the unit. Patient has been cooperative with staff and attending groups and taking notes to help learn coping skills to manage stress. Patient behavior has been in better control. Patient has been reporting no suicidal or homicidal ideation. No psychotic symptoms of hallucinations. Patient's blood pressure is been monitored regularly and medications adjustments will be made accordingly with help of hospitalist. Objective - Appearance Appearance: Healthy Appearing Dysmorphic Features: No Hygiene: Normal Grooming: Fairly Well Kept - Behavior Psychomotor Activities: Normal - Attitude and Relatedness Attitude and Relatedness: Cooperative Eye Contact: Fair - Speech Quality: Unpressured Latencies: Normal Quantity: Terse - Affect Observed Affect: Depressed Affect Consistent with: Dysphoria - Thought Process Patient's Thought Process: Goal Directed Thought Content: No Passive Wish, No Suicidal Planning, No Homicidal Ideation, No Paranoid Ideation - Sensorium Experiencing Hallucinations: No, Sensorium is Clear Type of Hallucinations: Visual: No, Auditory: No, Command: No - Level of Consciousness Level of Consciousness: Alert Orientation: Yes Intact, Yes Orientated to Time, Yes Orientated to Place, Yes Orientated to Person - Impulse Control Impulse Control: Intact - Insight and Judgement Insight and Judgement: Fair - Group Participation Particating in Group Activities: Yes - Medication Management Medication Management Adherence: Yes Assessment - Assessment Merits Inpatient Hospitalization: For Immediate Safety, For Stabilization, For Discharge Planning Inpatient DSM-V Dx: F31.2 Clinical Impression: First inpatient psychiatric admission for this 47-year-old male with documented history of bipolar disorder and anxiety disorder. No current outpatient care and no current medication trials, who was referred by his brother in a manic state and was admitted for safety after he was found carrying a knife. Medical history is remarkable for high blood pressure. There is a significant family history of bipolar disorder on both sides of his family. Patient has a past history of alcohol abuse and does admit to still smoking cannabis occasionally. He describes stressors of a recent termination from a job. Strained relationship with his ex- and with his son and lack of financial support. Plan - Plan Treatment Plan: Name: VANESSA KAMARA Birthdate: 1970 [id number] - Patient continues to be hospitalized due to recent suicidal thoughts with plan , mood instability, anxiety and impulsivity. - Patient's medications were adjusted with reduction of Zyprexa to 7.5 mg at bedtime, Depakote was continued at 500mg BID with plan to titrate as tolerated. - Will continue to monitor B.P, continue with current B.P medications. - Patient will be monitored for improvement and side effects. Risk and benefits were discussed. - Patient was encouraged to continue his participation in the milieu, group and individual therapy. Medications: Current Medications Acetaminophen (Tylenol Tab*) 650 mg PO Q4H PRN PRN Reason: for pain; or Temp >101 F Last Admin: 07/10/18 13:13 Dose: 650 mg Al Hydrox/Mg Hydrox/Simethicone (Maalox Plus*) 30 ml PO Q4H PRN PRN Reason: INDIGESTION Amlodipine Besylate (Norvasc Tab*) 10 mg PO DAILY [facility] Last Admin: 07/11/18 08:40 Dose: 10 mg Device (Nicotine Mouth Piece*) 1 each INH .CARTRIDGE [facility] Last Admin: 07/07/18 11:37 Dose: 1 each Divalproex Sodium (Depakote Dr Tab(*)) 500 mg PO BID [facility] Last Admin: 07/11/18 08:44 Dose: 500 mg Doxazosin Mesylate (Cardura Tab*) 2 mg PO DAILY [facility] Last Admin: 07/11/18 08:45 Dose: 2 mg Hydrochlorothiazide (Hydrodiuril Tab*) 12.5 mg PO DAILY [facility] Last Admin: 07/11/18 08:41 Dose: 12.5 mg Lisinopril (Prinivil Tab*) 10 mg PO DAILY [facility] Last Admin: 07/11/18 08:44 Dose: 10 mg Multivitamins (Theragran Tab*) 1 tab PO DAILY [facility] Last Admin: 07/11/18 08:40 Dose: 1 tab Nicotine (Nicotine Inhaler*) 10 mg INH Q2H PRN PRN Reason: CRAVING Last Admin: 07/09/18 13:55 Dose: 10 mg Nicotine (Nicotine Patch 14 Mg/24 Hr*) 1 patch TRANSDERM DAILY [facility] Last Admin: 07/11/18 08:46 Dose: 1 patch Nicotine Polacrilex (Nicotine Gum*) 2 mg PO Q2H PRN PRN Reason: CRAVING Last Admin: 07/11/18 08:50 Dose: 2 mg Olanzapine (Zyprexa Tab*) 7.5 mg PO BEDTIME [facility] Pharmacy Profile Note (Nicotine Patch Removal Note*) 1 note PATCH OFF 2100 [facility] Last Admin: 07/10/18 20:44 Dose: Not Given
--- NOTE | 2018-07-11 11:39 | PN ---
MHU: Group Therapy Note - Service Type Service Type: 84750 Group Psychotherapy - Cognitive Behavioral Group Therapy ( CBT):Patient was attentive and participatory in CBT programming this morning, and remained in good behavioral control. Patient expressed positive insights regarding relevant treatment interventions and goals.
--- NOTE | 2018-07-11 13:43 | PN ---
Subjective Date of Service: 07/11/18 Interval History: Pt is feeling ok. He is a little stressed out currently as another patient was just restrained on the floor. He denies any CP or SOB. Objective Active Medications: Acetaminophen (Tylenol Tab*) 650 mg PO Q4H PRN PRN Reason: for pain; or Temp >101 F Last Admin: 07/10/18 13:13 Dose: 650 mg Al Hydrox/Mg Hydrox/Simethicone (Maalox Plus*) 30 ml PO Q4H PRN PRN Reason: INDIGESTION Amlodipine Besylate (Norvasc Tab*) 10 mg PO DAILY [facility] Last Admin: 07/11/18 08:40 Dose: 10 mg Device (Nicotine Mouth Piece*) 1 each INH .CARTRIDGE [facility] Last Admin: 07/07/18 11:37 Dose: 1 each Divalproex Sodium (Depakote Dr Tab(*)) 500 mg PO BID [facility] Last Admin: 07/11/18 08:44 Dose: 500 mg Hydrochlorothiazide (Hydrodiuril Tab*) 12.5 mg PO DAILY [facility] Last Admin: 07/11/18 08:41 Dose: 12.5 mg Lisinopril (Prinivil Tab*) 20 mg PO DAILY [facility] Multivitamins (Theragran Tab*) 1 tab PO DAILY [facility] Last Admin: 07/11/18 08:40 Dose: 1 tab Nicotine (Nicotine Inhaler*) 10 mg INH Q2H PRN PRN Reason: CRAVING Last Admin: 07/09/18 13:55 Dose: 10 mg Nicotine (Nicotine Patch 14 Mg/24 Hr*) 1 patch TRANSDERM DAILY [facility] Last Admin: 07/11/18 08:46 Dose: 1 patch Nicotine Polacrilex (Nicotine Gum*) 2 mg PO Q2H PRN PRN Reason: CRAVING Last Admin: 07/11/18 08:50 Dose: 2 mg Olanzapine (Zyprexa Tab*) 7.5 mg PO BEDTIME [facility] Pharmacy Profile Note (Nicotine Patch Removal Note*) 1 note PATCH OFF 2100 [facility] Last Admin: 07/10/18 20:44 Dose: Not Given Vital Signs - 8 hr 07/11/18 07/11/18 07:34 10:32 Temperature 98.3 F Pulse Rate 92 Respiratory 16 16 Rate Blood Pressure 152/87 (mmHg) O2 Sat by Pulse 100 Oximetry Oxygen Devices in Use Now: None Appearance: Middle aged male sitting in the milieu, NAD Eyes: No Scleral Icterus Ears/Nose/Mouth/Throat: Mucous Membranes Moist Neurological: Alert and Oriented x 3 Result Diagrams: 07/06/18 11:15 07/06/18 11:11 Additional Lab and Data: Lab Results 07/06/18 07/06/18 Range/Units 11:11 11:15 WBC 12.5 H (3.5-10.8) 10^3/ul RBC 5.13 (4.00-5.40) 10^6/ul Hgb 15.2 (14.0-18.0) g/dl Hct 44 (42-52) % MCV 87 (80-94) fL MCH 30 (27-31) pg MCHC 34 (31-36) g/dl RDW 14 (10.5-15) % Plt Count 296 (150-450) 10^3/ul MPV 7.4 (7.4-10.4) um3 Neut % (Auto) 81.7 (38-83) % Lymph % (Auto) 11.4 L (25-47) % [place] % (Auto) 6.3 (0-7) % Eos % (Auto) 0.1 (0-6) % Baso % (Auto) 0.5 (0-2) % Absolute Neuts (auto) 10.2 H (1.5-7.7) 10^3/ul Absolute Lymphs (auto) 1.4 (1.0-4.8) 10^3/ul Absolute Monos (auto) 0.8 (0-0.8) 10^3/ul Absolute Eos (auto) 0 (0-0.6) 10^3/ul Absolute Basos (auto) 0.1 (0-0.2) 10^3/ul Absolute Nucleated RBC 0.1 10^3/ul Nucleated RBC % 0.6 Sodium 139 (135-145) mmol/L Potassium 3.7 (3.5-5.0) mmol/L Chloride 101 (101-111) mmol/L Carbon Dioxide 28 (22-32) mmol/L Anion Gap 10 (2-11) mmol/L BUN 12 (6-24) mg/dL Creatinine 0.84 (0.67-1.17) mg/dL Est GFR ( Amer) 117.5 (>60) Est GFR (Non-Af Amer) 97.1 (>60) BUN/Creatinine Ratio 14.3 (8-20) Glucose 131 H (70-100) mg/dL Calcium 9.7 (8.6-10.3) mg/dL Total Bilirubin 1.30 H (0.2-1.0) mg/dL AST 28 (13-39) U/L ALT 18 (7-52) U/L Alkaline Phosphatase 54 (34-104) U/L Total Protein 7.8 (6.4-8.9) g/dL Albumin 5.0 (3.2-5.2) g/dL Globulin 2.8 (2-4) g/dL Albumin/Globulin Ratio 1.8 (1-3) TSH Pending Salicylates Pending Acetaminophen Pending Serum Alcohol Pending Assess/Plan/Problems-Billing Mr Mcghee is a 47 yo M who has a h/o HTN and bipolar disorder who was admitted to the MHU with dominik. - Patient Problems (1) HTN (hypertension) Current Visit: Yes Status: Acute Code(s): I10 - ESSENTIAL (PRIMARY) HYPERTENSION SNOMED Code(s): 83311533 Comment: BP is improved today but still not at goal. To try to minimize the number of medications he is on will increase lisinopril to 20mg daily and d/c cardura. If BP not at goal tomorrow increase lisinopril to 40mg daily. BMP not done today-check tomorrow. (2) Bipolar disorder Current Visit: Yes Status: Acute Comment: Management per psychiatry.
[2018-07-11] MEDS: Nicotine Inhaler* 10 MG AMP INH PRN (17:17)
[2018-07-11] MEDS: Mouth Piece, Nicotine* 1 EACH CARTRIDGE INH SCH (17:17)
[2018-07-11] MEDS ORDERED: LORazepam TAB(*) 1 MG ONE (18:09)
[2018-07-11] MEDS: Nicotine Patch Removal NOTE PATCH OFF SCH (23:04)
[2018-07-11] MEDS: OLANzapine TAB* 2.5 MG PO SCH (23:04)
[2018-07-12] MEDS: OLANzapine TAB* 2.5 MG PO SCH ×2 (02:15→20:13)
[2018-07-12] MEDS: Nicotine Inhaler* 10 MG AMP INH PRN ×6 (02:15→22:11)
[2018-07-12] MEDS: Divalproex DR TAB(*) 500 MG PO SCH ×2 (02:15→08:48)
[2018-07-12] MEDS: Nicotine PATCH 14 MG/24 HR* PATCH TRANSDERM SCH (08:45)
[2018-07-12] MEDS: Hydrochlorothiazide TAB* 25 MG PO SCH (08:46)
[2018-07-12] MEDS: Vitamin THERAPEUTIC TAB PO SCH (08:47)
[2018-07-12] MEDS: Lisinopril TAB* 10 MG PO SCH (08:47)
[2018-07-12] MEDS: amLODIPine TAB* 5 MG PO SCH (08:48)
[2018-07-12] MEDS: Nicotine GUM* 2 MG PO PRN ×4 (09:54→19:44)
--- NOTE | 2018-07-12 11:55 | PN ---
Subjective - Subjective Date of Service: 07/12/18 Service Type: 81457 Hosp care 15 min low complexity Subjective: Patient was seen by self, discussed with treatment team, chart was reviewed. Patient has been compliant with his medications, no reported side effects. Patient reports having difficult time yesterday evening receiving another court order of order of protection from his friend Louis. Also after clarification and boundary setting of his relationship with Jazmin, who did not report being a friend of patient. Relationship and boundaries were still confusing to the team set up by Jazmin as she believed that she was like a therapist in patient's life but was also living at patient place. Patient was deregulated and anxious after hearing that yesterday and required on dose of Ativan. Patient reports more regulated mood and behavior this morning, no paranoia. Patient reported tolerating Depakote with out difficulty and sleeping better. Patient did not go through other court order from Louis but was able to comprehend that he was going through his manic episode during that time and understands why they were "scared". Patient eating has been fair on the unit. Patient has been cooperative with staff and attending groups and taking notes to help learn coping skills to manage stress. Patient behavior has been in better control. Patient has been reporting no suicidal or homicidal ideation. No psychotic symptoms of hallucinations/delusions. Patient's blood pressure is been monitored regularly and is improving. Objective - Appearance Appearance: Healthy Appearing Dysmorphic Features: No Hygiene: Normal Grooming: Fairly Well Kept - Behavior Psychomotor Activities: Normal Exhibits Abnormal Movement: No - Attitude and Relatedness Attitude and Relatedness: Cooperative Eye Contact: Fair - Speech Quality: Unpressured Latencies: Normal Quantity: Terse - Mood Patient's Decription of Mood: "Upset" - Affect Observed Affect: Depressed Affect Consistent with: Dysphoria - Thought Process Patient's Thought Process: Coherent Thought Content: No Passive Wish, No Suicidal Planning, No Homicidal Ideation, No Paranoid Ideation - Sensorium Experiencing Hallucinations: No, Sensorium is Clear Type of Hallucinations: Visual: No, Auditory: No, Command: No - Level of Consciousness Level of Consciousness: Alert Orientation: Yes Intact, Yes Orientated to Time, Yes Orientated to Place, Yes Orientated to Person - Impulse Control Impulse Control: Intact - Insight and Judgement Insight and Judgement: Fair - Group Participation Particating in Group Activities: Yes - Medication Management Medication Management Adherence: Yes Assessment - Assessment Merits Inpatient Hospitalization: For Immediate Safety, For Stabilization, For Discharge Planning Inpatient DSM-V Dx: F31.2 Clinical Impression: First inpatient psychiatric admission for this 47-year-old male with documented history of bipolar disorder and anxiety disorder. No current outpatient care and no current medication trials, who was referred by his brother in a manic state and was admitted for safety after he was found carrying a knife. Medical history is remarkable for high blood pressure. There is a significant family history of bipolar disorder on both sides of his family. Patient has a past history of alcohol abuse and does admit to still smoking cannabis occasionally. He describes stressors of a recent termination from a job. Strained relationship with his ex- and with his son and lack of financial support. Plan - Plan Treatment Plan: Name: VANESSA KAMARA Birthdate: 1970 [id number] - Patient continues to be hospitalized due to recent suicidal thoughts with plan , mood instability, anxiety and impulsivity. - Patient's medications were adjusted with continuation of Zyprexa at 7.5 mg at bedtime, Depakote was increased to 750mg BID with plan to obtain Depakote level on Sunday morning. - Will continue to monitor B.P, continue with current B.P medications. - Patient will be monitored for improvement and side effects. Risk and benefits were discussed. - Patient was encouraged to continue his participation in the milieu, group and individual therapy. Medications: Current Medications Acetaminophen (Tylenol Tab*) 650 mg PO Q4H PRN PRN Reason: for pain; or Temp >101 F Last Admin: 07/10/18 13:13 Dose: 650 mg Al Hydrox/Mg Hydrox/Simethicone (Maalox Plus*) 30 ml PO Q4H PRN PRN Reason: INDIGESTION Amlodipine Besylate (Norvasc Tab*) 10 mg PO DAILY [facility] Last Admin: 07/12/18 08:48 Dose: 10 mg Device (Nicotine Mouth Piece*) 1 each INH .CARTRIDGE [facility] Last Admin: 07/11/18 17:17 Dose: 1 each Divalproex Sodium (Depakote Dr Tab(*)) 750 mg PO BID [facility] Hydrochlorothiazide (Hydrodiuril Tab*) 12.5 mg PO DAILY [facility] Last Admin: 07/12/18 08:46 Dose: 12.5 mg Lisinopril (Prinivil Tab*) 20 mg PO DAILY [facility] Last Admin: 07/12/18 08:47 Dose: 20 mg Multivitamins (Theragran Tab*) 1 tab PO DAILY [facility] Last Admin: 07/12/18 08:47 Dose: 1 tab Nicotine (Nicotine Inhaler*) 10 mg INH Q2H PRN PRN Reason: CRAVING Last Admin: 07/12/18 09:54 Dose: 10 mg Nicotine (Nicotine Patch 14 Mg/24 Hr*) 1 patch TRANSDERM DAILY [facility] Last Admin: 07/12/18 08:45 Dose: 1 patch Nicotine Polacrilex (Nicotine Gum*) 2 mg PO Q2H PRN PRN Reason: CRAVING Last Admin: 07/12/18 09:54 Dose: 2 mg Olanzapine (Zyprexa Tab*) 7.5 mg PO BEDTIME [facility] Last Admin: 07/12/18 02:15 Dose: 7.5 mg Pharmacy Profile Note (Nicotine Patch Removal Note*) 1 note PATCH OFF 2100 [facility] Last Admin: 07/11/18 23:04 Dose: Not Given
--- NOTE | 2018-07-12 13:09 | PN ---
MHU: Group Therapy Note - Service Type Service Type: 82817 Group Psychotherapy - Cognitive Behavioral Group Therapy ( CBT):Patient was attentive and participatory in CBT programming this morning, and remained in good behavioral control. Patient expressed positive insights regarding relevant treatment interventions and goals.
--- NOTE | 2018-07-12 16:12 | PN ---
Subjective Date of Service: 07/12/18 Interval History: Pt feels well, denies headache, feels his thinking is "organized". Objective Active Medications: Acetaminophen (Tylenol Tab*) 650 mg PO Q4H PRN PRN Reason: for pain; or Temp >101 F Last Admin: 07/10/18 13:13 Dose: 650 mg Al Hydrox/Mg Hydrox/Simethicone (Maalox Plus*) 30 ml PO Q4H PRN PRN Reason: INDIGESTION Amlodipine Besylate (Norvasc Tab*) 10 mg PO DAILY [facility] Last Admin: 07/12/18 08:48 Dose: 10 mg Device (Nicotine Mouth Piece*) 1 each INH .CARTRIDGE [facility] Last Admin: 07/11/18 17:17 Dose: 1 each Divalproex Sodium (Depakote Dr Tab(*)) 750 mg PO BID [facility] Hydrochlorothiazide (Hydrodiuril Tab*) 12.5 mg PO DAILY [facility] Last Admin: 07/12/18 08:46 Dose: 12.5 mg Lisinopril (Prinivil Tab*) 20 mg PO DAILY [facility] Last Admin: 07/12/18 08:47 Dose: 20 mg Multivitamins (Theragran Tab*) 1 tab PO DAILY [facility] Last Admin: 07/12/18 08:47 Dose: 1 tab Nicotine (Nicotine Inhaler*) 10 mg INH Q2H PRN PRN Reason: CRAVING Last Admin: 07/12/18 14:23 Dose: 10 mg Nicotine (Nicotine Patch 14 Mg/24 Hr*) 1 patch TRANSDERM DAILY [facility] Last Admin: 07/12/18 08:45 Dose: 1 patch Nicotine Polacrilex (Nicotine Gum*) 2 mg PO Q2H PRN PRN Reason: CRAVING Last Admin: 07/12/18 14:23 Dose: 2 mg Olanzapine (Zyprexa Tab*) 7.5 mg PO BEDTIME [facility] Last Admin: 07/12/18 02:15 Dose: 7.5 mg Pharmacy Profile Note (Nicotine Patch Removal Note*) 1 note PATCH OFF 2100 [facility] Last Admin: 07/11/18 23:04 Dose: Not Given Vital Signs - 8 hr 07/12/18 14:07 Respiratory 18 Rate Oxygen Devices in Use Now: None Appearance: 47 yo M in nAD, aAOx3 Eyes: No Scleral Icterus, PERRLA Ears/Nose/Mouth/Throat: NL Teeth, Lips, Gums, Mucous Membranes Moist Neck: Trachea Midline Respiratory: Symmetrical Chest Expansion and Respiratory Effort, Clear to Auscultation Cardiovascular: NL Sounds; No Murmurs; No JVD, RRR Abdominal: NL Sounds; No Tenderness; No Distention Extremities: No Edema Neurological: Alert and Oriented x 3, NL Muscle Strength and Tone Result Diagrams: 07/06/18 11:15 07/06/18 11:11 Additional Lab and Data: Lab Results 07/06/18 07/06/18 Range/Units 11:11 11:15 WBC 12.5 H (3.5-10.8) 10^3/ul RBC 5.13 (4.00-5.40) 10^6/ul Hgb 15.2 (14.0-18.0) g/dl Hct 44 (42-52) % MCV 87 (80-94) fL MCH 30 (27-31) pg MCHC 34 (31-36) g/dl RDW 14 (10.5-15) % Plt Count 296 (150-450) 10^3/ul MPV 7.4 (7.4-10.4) um3 Neut % (Auto) 81.7 (38-83) % Lymph % (Auto) 11.4 L (25-47) % [place] % (Auto) 6.3 (0-7) % Eos % (Auto) 0.1 (0-6) % Baso % (Auto) 0.5 (0-2) % Absolute Neuts (auto) 10.2 H (1.5-7.7) 10^3/ul Absolute Lymphs (auto) 1.4 (1.0-4.8) 10^3/ul Absolute Monos (auto) 0.8 (0-0.8) 10^3/ul Absolute Eos (auto) 0 (0-0.6) 10^3/ul Absolute Basos (auto) 0.1 (0-0.2) 10^3/ul Absolute Nucleated RBC 0.1 10^3/ul Nucleated RBC % 0.6 Sodium 139 (135-145) mmol/L Potassium 3.7 (3.5-5.0) mmol/L Chloride 101 (101-111) mmol/L Carbon Dioxide 28 (22-32) mmol/L Anion Gap 10 (2-11) mmol/L BUN 12 (6-24) mg/dL Creatinine 0.84 (0.67-1.17) mg/dL Est GFR ( Amer) 117.5 (>60) Est GFR (Non-Af Amer) 97.1 (>60) BUN/Creatinine Ratio 14.3 (8-20) Glucose 131 H (70-100) mg/dL Calcium 9.7 (8.6-10.3) mg/dL Total Bilirubin 1.30 H (0.2-1.0) mg/dL AST 28 (13-39) U/L ALT 18 (7-52) U/L Alkaline Phosphatase 54 (34-104) U/L Total Protein 7.8 (6.4-8.9) g/dL Albumin 5.0 (3.2-5.2) g/dL Globulin 2.8 (2-4) g/dL Albumin/Globulin Ratio 1.8 (1-3) TSH Pending Salicylates Pending Acetaminophen Pending Serum Alcohol Pending Assess/Plan/Problems-Billing Mr Mcghee is a 47 yo M who has a h/o HTN and bipolar disorder who was admitted to the MHU with dominik. - Patient Problems (1) Bipolar disorder Comment: Management per psychiatry. (2) HTN (hypertension) Comment: HTN is controlled today today, cont lisinopril to 20mg daily , HCTZ and Norvasc at current dose Status and Disposition: Medicine consult. Thank you. Will follow
[2018-07-12] MEDS: Divalproex DR TAB(*) 250 MG PO SCH (20:13)
[2018-07-12] MEDS: Nicotine Patch Removal NOTE PATCH OFF SCH (21:58)
[2018-07-13] MEDS: Divalproex DR TAB(*) 250 MG PO SCH ×2 (08:18→20:43)
[2018-07-13] MEDS: Hydrochlorothiazide TAB* 25 MG PO SCH (08:19)
[2018-07-13] MEDS: Lisinopril TAB* 10 MG PO SCH (08:20)
[2018-07-13] MEDS: amLODIPine TAB* 5 MG PO SCH (08:20)
[2018-07-13] MEDS: Vitamin THERAPEUTIC TAB PO SCH (08:20)
[2018-07-13] MEDS: Nicotine Inhaler* 10 MG AMP INH PRN ×4 (08:21→20:45)
[2018-07-13] MEDS: Nicotine PATCH 14 MG/24 HR* PATCH TRANSDERM SCH (08:21)
--- NOTE | 2018-07-13 13:48 | PN ---
Subjective Date of Service: 07/13/18 Interval History: Pt has no complaints. Feels well. stated that he was only on HCTZ as outpatient Objective Active Medications: Acetaminophen (Tylenol Tab*) 650 mg PO Q4H PRN PRN Reason: for pain; or Temp >101 F Last Admin: 07/10/18 13:13 Dose: 650 mg Al Hydrox/Mg Hydrox/Simethicone (Maalox Plus*) 30 ml PO Q4H PRN PRN Reason: INDIGESTION Amlodipine Besylate (Norvasc Tab*) 10 mg PO DAILY [facility] Last Admin: 07/13/18 08:20 Dose: 10 mg Device (Nicotine Mouth Piece*) 1 each INH .CARTRIDGE [facility] Last Admin: 07/11/18 17:17 Dose: 1 each Divalproex Sodium (Depakote Dr Tab(*)) 750 mg PO BID [facility] Last Admin: 07/13/18 08:18 Dose: 750 mg Hydrochlorothiazide (Hydrodiuril Tab*) 12.5 mg PO DAILY [facility] Last Admin: 07/13/18 08:19 Dose: 12.5 mg Lisinopril (Prinivil Tab*) 20 mg PO DAILY [facility] Last Admin: 07/13/18 08:20 Dose: 20 mg Multivitamins (Theragran Tab*) 1 tab PO DAILY [facility] Last Admin: 07/13/18 08:20 Dose: 1 tab Nicotine (Nicotine Inhaler*) 10 mg INH Q2H PRN PRN Reason: CRAVING Last Admin: 07/13/18 11:41 Dose: 10 mg Nicotine (Nicotine Patch 14 Mg/24 Hr*) 1 patch TRANSDERM DAILY [facility] Last Admin: 07/13/18 08:21 Dose: 1 patch Nicotine Polacrilex (Nicotine Gum*) 2 mg PO Q2H PRN PRN Reason: CRAVING Last Admin: 07/12/18 19:44 Dose: 2 mg Olanzapine (Zyprexa Tab*) 7.5 mg PO BEDTIME [facility] Last Admin: 07/12/18 20:13 Dose: 7.5 mg Pharmacy Profile Note (Nicotine Patch Removal Note*) 1 note PATCH OFF 2100 [facility] Last Admin: 07/12/18 21:58 Dose: Not Given Vital Signs - 8 hr 07/13/18 08:06 Temperature 97.2 F Pulse Rate 74 Respiratory 16 Rate Blood Pressure 125/83 (mmHg) O2 Sat by Pulse 100 Oximetry Oxygen Devices in Use Now: None Appearance: 47 yo M in nAD, aAOx3 Eyes: No Scleral Icterus, PERRLA Ears/Nose/Mouth/Throat: NL Teeth, Lips, Gums Neck: NL Appearance and Movements; NL JVP Respiratory: Symmetrical Chest Expansion and Respiratory Effort, Clear to Auscultation Cardiovascular: NL Sounds; No Murmurs; No JVD, RRR Extremities: No Edema Neurological: Alert and Oriented x 3, NL Muscle Strength and Tone Result Diagrams: 07/06/18 11:15 07/06/18 11:11 Additional Lab and Data: Lab Results 07/06/18 07/06/18 Range/Units 11:11 11:15 WBC 12.5 H (3.5-10.8) 10^3/ul RBC 5.13 (4.00-5.40) 10^6/ul Hgb 15.2 (14.0-18.0) g/dl Hct 44 (42-52) % MCV 87 (80-94) fL MCH 30 (27-31) pg MCHC 34 (31-36) g/dl RDW 14 (10.5-15) % Plt Count 296 (150-450) 10^3/ul MPV 7.4 (7.4-10.4) um3 Neut % (Auto) 81.7 (38-83) % Lymph % (Auto) 11.4 L (25-47) % Upson % (Auto) 6.3 (0-7) % Eos % (Auto) 0.1 (0-6) % Baso % (Auto) 0.5 (0-2) % Absolute Neuts (auto) 10.2 H (1.5-7.7) 10^3/ul Absolute Lymphs (auto) 1.4 (1.0-4.8) 10^3/ul Absolute Monos (auto) 0.8 (0-0.8) 10^3/ul Absolute Eos (auto) 0 (0-0.6) 10^3/ul Absolute Basos (auto) 0.1 (0-0.2) 10^3/ul Absolute Nucleated RBC 0.1 10^3/ul Nucleated RBC % 0.6 Sodium 139 (135-145) mmol/L Potassium 3.7 (3.5-5.0) mmol/L Chloride 101 (101-111) mmol/L Carbon Dioxide 28 (22-32) mmol/L Anion Gap 10 (2-11) mmol/L BUN 12 (6-24) mg/dL Creatinine 0.84 (0.67-1.17) mg/dL Est GFR ( Amer) 117.5 (>60) Est GFR (Non-Af Amer) 97.1 (>60) BUN/Creatinine Ratio 14.3 (8-20) Glucose 131 H (70-100) mg/dL Calcium 9.7 (8.6-10.3) mg/dL Total Bilirubin 1.30 H (0.2-1.0) mg/dL AST 28 (13-39) U/L ALT 18 (7-52) U/L Alkaline Phosphatase 54 (34-104) U/L Total Protein 7.8 (6.4-8.9) g/dL Albumin 5.0 (3.2-5.2) g/dL Globulin 2.8 (2-4) g/dL Albumin/Globulin Ratio 1.8 (1-3) TSH Pending Salicylates Pending Acetaminophen Pending Serum Alcohol Pending Assess/Plan/Problems-Billing Mr Mcghee is a 47 yo M who has a h/o HTN and bipolar disorder who was admitted to the [facility] with dominik. - Patient Problems (1) Bipolar disorder Comment: Management per psychiatry. (2) HTN (hypertension) Comment: HTN is controlled on lisinopril to 20mg daily , HCTZ and Norvasc at current dose Status and Disposition: Medicine consult. Thank you. Will sign off. Please call back if needed
[2018-07-13] MEDS: Nicotine Patch Removal NOTE PATCH OFF SCH (20:43)
[2018-07-13] MEDS: OLANzapine TAB* 2.5 MG PO SCH (20:43)
[2018-07-14] MEDS: amLODIPine TAB* 5 MG PO SCH (08:30)
[2018-07-14] MEDS: Divalproex DR TAB(*) 250 MG PO SCH ×2 (08:31→21:42)
[2018-07-14] MEDS: Hydrochlorothiazide TAB* 25 MG PO SCH (08:32)
[2018-07-14] MEDS: Lisinopril TAB* 10 MG PO SCH (08:32)
[2018-07-14] MEDS: Vitamin THERAPEUTIC TAB PO SCH (08:33)
[2018-07-14] MEDS: Nicotine PATCH 14 MG/24 HR* PATCH TRANSDERM SCH (08:33)
[2018-07-14] MEDS: Nicotine Inhaler* 10 MG AMP INH PRN ×4 (08:33→17:52)
[2018-07-14 09:27] LABS: EGFR Non-African American 90.9 (>60)
[2018-07-14] MEDS: Nicotine GUM* 2 MG PO PRN (18:19)
[2018-07-14] MEDS: Acetaminophen TAB* 325 MG PO PRN (18:20)
[2018-07-14] MEDS: OLANzapine TAB* 2.5 MG PO SCH (21:43)
[2018-07-14] MEDS: Nicotine Patch Removal NOTE PATCH OFF SCH (21:44)
[2018-07-15] MEDS: Nicotine PATCH 14 MG/24 HR* PATCH TRANSDERM SCH (08:43)
[2018-07-15] MEDS: Nicotine Inhaler* 10 MG AMP INH PRN ×5 (08:43→19:17)
[2018-07-15] MEDS: Divalproex DR TAB(*) 250 MG PO SCH ×2 (08:45→20:24)
[2018-07-15] MEDS: Lisinopril TAB* 10 MG PO SCH (08:45)
[2018-07-15] MEDS: Vitamin THERAPEUTIC TAB PO SCH (08:46)
[2018-07-15] MEDS: amLODIPine TAB* 5 MG PO SCH (08:46)
[2018-07-15] MEDS: Hydrochlorothiazide TAB* 25 MG PO SCH (08:48)
--- NOTE | 2018-07-15 11:36 | PN ---
[facility]: Group Therapy Note - Service Type Service Type: 03335 Group Psychotherapy - Cognitive Behavioral Group Therapy ( CBT):Patient was attentive and participatory in CBT programming this morning, and remained in good behavioral control. Patient expressed positive insights regarding relevant treatment interventions and goals.
--- NOTE | 2018-07-15 12:54 | PN ---
Subjective - Subjective Date of Service: 07/15/18 Service Type: 76410 Hosp care 15 min low complexity Subjective: Patient was seen by self, discussed with treatment team, chart was reviewed. Patient has been compliant with his medications, no reported side effects. Patient reports feeling better and is attending groups to help learn coping skills to work with current stressors. Patient understands her financial, legal and relationship and other psychosocial stressor that will require ongoing therapy. patient also wanted to see a psychiatry instead receiving his medications from primary care. Patient had questions about dosing and frequency of his medications and was educated about them and felt appreciated after that. Patient eating has been fair on the unit and reports following nutritional advice and is going to cut down red meat and have low sodium in his diet. Patient has been cooperative with staff and attending groups and taking notes to help learn coping skills to manage stress. Patient behavior has been in better control. Patient BMP was don yesterday which was with in normal limits especially potassium. Patient has been reporting no suicidal or homicidal ideation. No psychotic symptoms of hallucinations/delusions. Patient's blood pressure is been monitored regularly and is stable. Will obtain liver funstion test and Depakote level tomorrow morning. Objective - Appearance Appearance: Healthy Appearing Dysmorphic Features: No Hygiene: Normal Grooming: Fairly Well Kept - Behavior Psychomotor Activities: Normal Exhibits Abnormal Movement: No - Attitude and Relatedness Attitude and Relatedness: Cooperative - Speech Quality: Unpressured Latencies: Normal Quantity: Terse - Mood Patient's Decription of Mood: "Fine" - Affect Affect Consistent with: Dysphoria - Thought Process Patient's Thought Process: Goal Directed Thought Content: No Passive Wish, No Suicidal Planning, No Homicidal Ideation, No Paranoid Ideation - Sensorium Experiencing Hallucinations: No, Sensorium is Clear - less Type of Hallucinations: Visual: No, Auditory: No, Command: No - Level of Consciousness Level of Consciousness: Alert Orientation: Yes Intact, Yes Orientated to Time, Yes Orientated to Place, Yes Orientated to Person - Impulse Control Impulse Control: Intact - Insight and Judgement Insight and Judgement: Fair - Group Participation Particating in Group Activities: Yes - Medication Management Medication Management Adherence: Yes Assessment - Assessment Merits Inpatient Hospitalization: For Immediate Safety, For Stabilization, For Discharge Planning Inpatient DSM-V Dx: F31.2 Clinical Impression: First inpatient psychiatric admission for this 47-year-old male with documented history of bipolar disorder and anxiety disorder. No current outpatient care and no current medication trials, who was referred by his brother in a manic state and was admitted for safety after he was found carrying a knife. Medical history is remarkable for high blood pressure. There is a significant family history of bipolar disorder on both sides of his family. Patient has a past history of alcohol abuse and does admit to still smoking cannabis occasionally. He describes stressors of a recent termination from a job. Strained relationship with his ex- and with his son and lack of financial support. Plan - Plan Treatment Plan: Name: VANESSA KAMARA Birthdate: 1970 [id number] - Patient continues to be hospitalized due to recent suicidal thoughts with plan , mood instability, anxiety and impulsivity. - Patient's medications were continued with Zyprexa at 7.5 mg at bedtime, Depakote at 750mg BID with plan to obtain Depakote level/LFT tomorrow morning. - B.P stable, continue with current B.P medications. - Patient will be monitored for improvement and side effects. Risk and benefits were discussed. - Patient was encouraged to continue his participation in the milieu, group and individual therapy. Medications: Current Medications Acetaminophen (Tylenol Tab*) 650 mg PO Q4H PRN PRN Reason: for pain; or Temp >101 F Last Admin: 07/14/18 18:20 Dose: 650 mg Al Hydrox/Mg Hydrox/Simethicone (Maalox Plus*) 30 ml PO Q4H PRN PRN Reason: INDIGESTION Amlodipine Besylate (Norvasc Tab*) 10 mg PO DAILY [facility] Last Admin: 07/15/18 08:46 Dose: 10 mg Device (Nicotine Mouth Piece*) 1 each INH .CARTRIDGE [facility] Last Admin: 07/11/18 17:17 Dose: 1 each Divalproex Sodium (Depakote Dr Tab(*)) 750 mg PO BID [facility] Last Admin: 07/15/18 08:45 Dose: 750 mg Hydrochlorothiazide (Hydrodiuril Tab*) 12.5 mg PO DAILY [facility] Last Admin: 07/15/18 08:48 Dose: 12.5 mg Lisinopril (Prinivil Tab*) 20 mg PO DAILY [facility] Last Admin: 07/15/18 08:45 Dose: 20 mg Multivitamins (Theragran Tab*) 1 tab PO DAILY [facility] Last Admin: 07/15/18 08:46 Dose: 1 tab Nicotine (Nicotine Inhaler*) 10 mg INH Q2H PRN PRN Reason: CRAVING Last Admin: 07/15/18 12:04 Dose: 10 mg Nicotine (Nicotine Patch 14 Mg/24 Hr*) 1 patch TRANSDERM DAILY [facility] Last Admin: 07/15/18 08:43 Dose: 1 patch Nicotine Polacrilex (Nicotine Gum*) 2 mg PO Q2H PRN PRN Reason: CRAVING Last Admin: 07/14/18 18:19 Dose: 2 mg Olanzapine (Zyprexa Tab*) 7.5 mg PO BEDTIME [facility] Last Admin: 07/14/18 21:43 Dose: 7.5 mg Pharmacy Profile Note (Nicotine Patch Removal Note*) 1 note PATCH OFF 2100 [facility] Last Admin: 07/14/18 21:44 Dose: 1 note
[2018-07-15] MEDS: Nicotine GUM* 2 MG PO PRN ×2 (14:23→19:17)
[2018-07-15] MEDS: OLANzapine TAB* 2.5 MG PO SCH (20:22)
[2018-07-15] MEDS: Nicotine Patch Removal NOTE PATCH OFF SCH (21:35)
[2018-07-16] MEDS: Divalproex DR TAB(*) 250 MG PO SCH (08:18)
[2018-07-16] MEDS: amLODIPine TAB* 5 MG PO SCH (08:19)
[2018-07-16] MEDS: Lisinopril TAB* 10 MG PO SCH (08:19)
[2018-07-16] MEDS: Vitamin THERAPEUTIC TAB PO SCH (08:19)
[2018-07-16] MEDS: Nicotine PATCH 14 MG/24 HR* PATCH TRANSDERM SCH (08:20)
[2018-07-16] MEDS: Hydrochlorothiazide TAB* 25 MG PO SCH (08:21)
[2018-07-16] MEDS: Nicotine Inhaler* 10 MG AMP INH PRN ×2 (08:22→10:22)
[2018-07-16 08:50] VITALS: BP 131/78
[2018-07-16] MEDS: Nicotine GUM* 2 MG PO PRN (10:21)
--- NOTE | 2018-07-16 14:05 | DS ---
Subjective - Subjective Service Types: 20012 [facility] Hospital Day Mgmt simple under 30 min Discharge Date: 07/16/18 Subjective: IDENTIFYING DATA: Avtar is a 47-year-old , unemployed, domiciled male who was referred by his brother and he was admitted on emergency status. SOURCE OF INFORMATION: Patient presents as psychotic and he is a poor historian. This note is dictated based on review of admission data and limited interview with the patient. 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 Patient related, that on the day he presented, he was walking from [place] towards [place] to get a ride to Jazmin's house in [place] when he was met by his brother who had gone to his house to check on him and not seeing him started looking for him. Notes indicate that the brother drove the patient back home. At home, the patient got out of the car, took all his clothes off, and threw a hunting knife that he had hidden on his person in the bushes. His brother, Geovanny, called the police and brought him to the hospital. During his evaluation, the patient was disorganized, making bizarre sexual statements, saying he was on his way to [place] this morning to have sex with Jazmin and that he is not butts. Then, he stated "we can cut through the jose roberto , I do not remember the last time I masturbated, I think it was a decade ago here in the ED, I cannot remember what happened last time, I do not remember when I last slept." REVIEW OF PSYCHIATRIC SYMPTOMS: The patient reports previous diagnosis of depression but denies having felt depressed in recent months. He endorses excessive worrying, irritability, muscle tension, he was prescribed clonazepam and alprazolam at different times in the past by his primary care provider, Consuelo Delcid, nurse practitioner, at [facility]. He has diagnosis of bipolar disorder, has had periods of dominik with insomnia, decreased need for sleep, increased goal-directness, hypersexuality and other other activities with potential for consequences, racing thoughts, pressured speech, and grandiosity. Patient also reports that he is a recovering alcoholic that he started drinking casually in high school, became a binge drinker in college until separation from his in January 2014. He has been sober since June 2017. He does smoke cannabis on occasions. He denies the use of other illicit drugs. PAST PSYCHIATRIC HISTORY: The patient reports this is his first inpatient psychiatric admission. At age 16, he had this first manic/psychotic break while he was in college. His parents took him home to an emergency room in [place], [place], where he was evaluated and was referred for outpatient psychiatric treatment. He has had trials of lithium and Depakote in the past that he said he self-discontinued because of sexual side effect. He denies previous chago suicide attempt. He denies any history of violence. PAST MEDICAL HISTORY: Remarkable for hypertension, for which he is on Hydrochlorothiazide and Potassium supplementation. He is followed at [facility] by Consuelo Delcid , family nurse practitioner. REVIEW OF MEDICAL SYMPTOMS: Negative. PHYSICAL EXAMINATION GENERAL: He is a well-appearing 47-year-old white male who does not appear to be in any acute physical distress. He is alert and oriented x3. ADMISSION VITAL SIGNS: Blood pressure 125/97, pulse 81, respirations 16, temperature 99.5. HEENT: Head: Atraumatic, normocephalic, symmetrical. Eyes: PERRLA. Tympanic membranes intact. Sclerae anicteric. Conjunctivae clear. NECK: Trachea midline, freely mobile. No cervical lymphadenopathy. No nuchal rigidity. LUNGS: Clear to auscultation bilaterally. HEART: Regular rate and rhythm. S1, S2. No murmurs, gallops, or rubs. BREASTS: No mass or discharge. ABDOMEN: Soft, nontender. No masses, organomegaly, or rebound tenderness. No scars noted. Active bowel sounds in all 4 quadrants. NEUROLOGIC: Cranial nerves II through XII are intact. Cerebellar function intact. Muscle strength grade 5/5 in all 4 extremities. STRUCTURAL EXAM: The patient examined in both supine and upright positions. No gross AP or lateral asymmetry. Gait and movement are within normal limits. GENITAL: Exam not performed. RECTAL: Exam not performed. SKIN: Skin texture, turgor, and pigmentation are within normal limits. He has male pattern baldness. LABORATORY DATA: Laboratories on admission: CBC shows WBC of 12.5, lymphocyte percentage of 11.4, and absolute neutrophil is 10.2. Complete metabolic panel shows nonfasting glucose of 131 and total bilirubin was 1.30. Urinalysis shows specific gravity of 1.003 and trace of ketones. Urine toxicology screen is negative for all the tested substances. FAMILY HISTORY: Family history of bipolar disorder in 2 of his brothers and his maternal grandfather and in a maternal cousin. His father and paternal grandfather also both had bipolar disorder and his maternal great- grandfather completed suicide. PERSONAL AND SOCIAL HISTORY: Avtar was born in [place], [place]. He grew up with both his parents who are now both . He has an older brother, a twin brother, a younger sister, and an a youngest brother. He has graduated from high school, attended [employer] where he obtained a bachelor of science in accounting. He was for about 16 years. He has a son who is 17 years old. Relationship with both his ex- and son are strained. Het worked for [employer] until last month when he asserts he was fired after discovering possible accounting fraud that the company was engaging in. He reports having been actively looking for a job. 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 He identified as being heterosexual, reports that he is now currently in a relationship with "Jazmin," and they frequently have satisfying sex. Patient is worried about starting medications because he said he wanted to maintain his peak performance. MENTAL STATUS EXAMINATION: Finds a 47-year-old white male with balding hair pattern and rimmed glasses who looks his stated age. He is poorly groomed, unshaven, he walks around wrapped in bedsheet. He makes intense eye contact. He frequently looks over his shoulders. He presents as a psychotically related. He exhibits normal psychomotor activity. No abnormal movements observed. Speech is spontaneous; normal rate, rhythm, and volume. His affect is anxious. Mood is dysphoric. Thought process remarkable for evidence of paranoid and persecutory delusions. He denies auditory or visual hallucinations. His insight and judgment are grossly impaired. Impulse control is fair in the setting. He is alert. He is oriented to time, place, and person. Attention, memory, and concentration are all poor. Fund of knowledge is adequate. Intelligence is estimated to be in normal average range. SUMMARY: First inpatient psychiatric admission for this 47-year-old male with documented history of bipolar and anxiety disorders; no current outpatient care and no current medication trials, who was referred by his brother in a manic state and was admitted for safety after he was found carrying a knife. Medical history is remarkable for high blood pressure. There is a significant family history of bipolar disorder on both sides of his family. Patient has a past history of alcohol dependence in remission. He admits to smoking cannabis occasionally. He describes stressors of a recent termination from a job, strained relationship with his ex- and with his son and lack of financial support. DIAGNOSTIC IMPRESSIONS ON ADMISSION: 1. Bipolar 1 disorder. Current episode manic, severe, with psychotic features. 2. Alcohol dependence, in sustained remission. 3. Unspecified anxiety disorder. 4. Cannabis dependence. Objective - Appearance Appearance: Healthy Appearing Dysmorphic Features: No Hygiene: Normal Grooming: Fairly Well Kept - Behavior Psychomotor Activities: Normal Exhibits Abnormal Movement: No - Attitude and Relatedness Attitude and Relatedness: Cooperative Eye Contact: Fair - Speech Quality: Unpressured Latencies: Normal Quantity: Appropriate - Mood Patient's Decription of Mood: "Fine" - Affect Observed Affect: Fair Affect Consistent with: Euthymia - Thought Process Patient's Thought Process: Coherent Thought Content: No Passive Wish, No Suicidal Planning, No Homicidal Ideation, No Paranoid Ideation - Sensorium Experiencing Hallucinations: No, Sensorium is Clear Type of Hallucinations: Visual: No, Auditory: No, Command: No - Level of Consciousness Level of Consciousness: Alert Orientation: Yes Intact, Yes Orientated to Time, Yes Orientated to Place, Yes Orientated to Person - Impulse Control Impulse Control: Intact - Insight and Judgement Insight and Judgement: Fair - Group Participation Particating in Group Activities: Yes - Medication Management Medication Management Adherence: Yes Treatment Course & Assessment Clinical Course & Impression: First inpatient psychiatric admission for this 47-year-old male with documented history of bipolar disorder and anxiety disorder. No current outpatient care and no current medication trials, who was referred by his brother in a manic state and was admitted for safety after he was found carrying a knife. Medical history is remarkable for high blood pressure. There is a significant family history of bipolar disorder on both sides of his family. Patient has a past history of alcohol abuse and does admit to still smoking cannabis occasionally. He describes stressors of a recent termination from a job. Strained relationship with his ex- and with his son and lack of financial support. Patient was admitted to mental health unit, 15-minute checks, full code status. Legal status was involuntary. Patient was integrated into initial comprehensive milieu individual and group psychotherapeutic supports. Patient consented to trial of lithium and Olanzapine to regulate mood and sleep after hearing of the indication, risks, benefits, side effects, and alternatives. Patient reports some improvement in his symptoms after start of his treatment, was less irritable, less disorganized, less manic, some improvement in sleep, less paranoia. Patient sleeping was better than before. Patient eating was fair. Patient was cooperative with staff and attending some groups. Patient behavior was in better control. Patient mood was anxious and dysphoric. Patient was reporting no suicidal or homicidal ideation. No psychotic symptoms of hallucinations. Patient's medications were adjusted after informed consent with Zyprexa 10 mg at bedtime and [place] was increased to 450 mg BID. Hospitalist Consult was called for HTN, as patient has history of high blood pressure and was reportedly taking Lisinopril/Hctz 20/12.5 mg once daily and KCl+ 20 me q BID but was not any B.P meds from Emergency department. Patient continued to be asymptomatic during review of symptoms. After recommendation from Hospitalist patient was started on Amlodipine 10 mg Daily but continued to run high. Discussed with Hospitalist and he was recommended to be started on Lisinopril 10 mg PO daily. Met with patient's brother who was concerned about patient as he was present during the time of hospitalization. treatment and discharge planning were discussed with presence of patient and his brother. Patient was accepting of it but brother was hesitant about that and stated "family would not agree with the discharge on Sunday". Also discussed about order of protection that his ex- will be placing against him and questionable application of emergency sole custody for which patient will need to appear in the court for. Patient states that he is disappointed about that but will follow the procedure. Patient reports that he has to set his priority and his son and job comes first. Patient will search for a job to support his son and then he still wanted to keep friendship with this person Jazmin. But was not sure if they are going to be more than friends. Patient also stated that he will keep his communication better with his brothers in [place] through phone and meet them intermittently. Patient was sad when he was served with order of protection from her ex . Patient was avoiding to look into it initially until he felt strong emotionally to go over it. Patient was able to handle the distress with some support and understood that his behavior under manic episode lead to it. Patient's blood pressure continues to be elevated, discussed with Hospital and medications adjustments were made. Patient was educated about discontinuation of [place] and switching it to Depakote due to interaction with his B.P medications ( Lisinopril and HCTZ) suggested by Hospitalist and agreed with the plan.Patient' s medications were adjusted with reduction of Zyprexa to 7.5 mg at bedtime as reporting hypersomnia, Depakote was started at 500mg BID with plan to titrate as tolerated. Patient received another court order regarding order of protection placed by his friend Louis. Patient was also distressed about clarification of his relationship with Jazmin, who reported being a therapist of patient instead of a friend. Relationship and boundaries were still confusing to the team set up by Jazmin as patient has reported that she was living and sleeping with her sometimes. Patient was deregulated and anxious after hearing that and required one dose of Ativan. Patient recovered from that distress appropriately, was regularly attending groups and reported tolerating Depakote with out difficulty and sleeping better. Patient was able to comprehend reasoning behind courts orders were that he was going through his manic episode during that time and understands why they were "scared". Patient was attending groups and taking notes to help learn coping skills to manage stress. Patient behavior was been in good control. Patient was reporting no suicidal or homicidal ideation. No psychotic symptoms of hallucinations/delusions. Patient's blood pressure also improved. Patient's medications were adjusted with continuation of Zyprexa at 7.5 mg at bedtime, Depakote was increased to 750mg BID with plan to obtain Depakote level. Patient BMP was don yesterday which was with in normal limits especially potassium that he was worried about. Patient Depakote level was 80.0 and Liver function test was with in normal limits. Patient improved, mood and behavior was stable, not psychotic, denied any si/hi , family was involved with discharge and treatment planning. Patient was compliant with treatment and willing to follow up outpatient care. Patient was discussed with team and was discharged today as he was not a danger to self and others. Patient was caring for himself. Outpatient appointments were arranged fro patient and was given 2 weeks of prescription. Merits Inpatient Hospitalization: No Clear for Discharge: Adequate Clinical Respons, Acceptable Safety Profile Inpatient DSM-V Dx: F31.2 Discharge Planning - Discharge Planning Discharge Plan: Outpatient Follow Up Recommendations for Continuing Care: Medication Management, Psychotherapy Medications: Amlodipine Besylate (Norvasc Tab*) 10 mg PO DAILY [facility] Last Admin: 07/15/18 08:46 Dose: 10 mg Divalproex Sodium (Depakote Dr Tab(*)) 750 mg PO BID [facility] Last Admin: 07/15/18 08:45 Dose: 750 mg Hydrochlorothiazide (Hydrodiuril Tab*) 12.5 mg PO DAILY [facility] Last Admin: 07/15/18 08:48 Dose: 12.5 mg Lisinopril (Prinivil Tab*) 20 mg PO DAILY [facility] Last Admin: 07/15/18 08:45 Dose: 20 mg Olanzapine (Zyprexa Tab*) 7.5 mg PO BEDTIME [facility] Last Admin: 07/14/18 21:43 Dose: 7.5 mg Discharge Planning: Prescriptions provided for discharge [x] Yes [] No Follow up care details as per social work arrangements. Patient response to discharge plan: [x] eager for discharge [] agreeable with discharge plan [] ambivalent about discharge [] disagrees with discharge today
--- NOTE | 2018-07-17 13:36 | CONS ---
PSYCHOLOGICAL REPORT: DATE OF CONSULT: 07/15/18 REASON FOR REFERRAL: Avtar was referred for psychological assessment secondary to concerns regardi ng possible psychosis and likely bipolar 1 disorder. TEST ADMINISTERED: Avtar completed the [place] Multiphasic Personality Inventory-2 (MMPI-2) and was given feedback regarding test results and individual conversation. Avtar was also seen by this report writer in the context of cognitive behavioral group psychotherapy throughout his admission. RELEVANT HISTORY: Avtar was brought to the ED for evaluation after he had engaged in some bizarre behaviors and was found to be in a manic and disorganized condition. Avtar's brother had intervene d after having went to his house to check up on him, found him walking down the road where he had int ensions of walking from [facility] to [place] to go to a friend's home. After his brother took him back home, Avtar began to act and say bizarre things characterized by sexual fixations. 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 He was for 16 years and is now and has a son who is 17 years of age. He has appa rently strained relationships with both currently. He currently is looking for employment describing how being unemployed has been very humbling experience for him as he has been accustomed to doing qu ite well financially, describing making as much as 160,000 a year at one point time. BEHAVIORAL OBSERVATIONS: Avtar has been compliant with routine and has been compliant with recomme nded medications. He has been quite pleasant in group psychotherapy often initiating thoughtful clin ical discussion, it is relevant and on topic. He is able to relate and induce concepts to his life w ith good insight and spontaneously expressed his prosocial goals and interest. He is empathic with ers and staff. He describes his frustration with having to deal with recurrent dominik in his life. He has significant genetic loading for this disorder with apparently several immediate close cousins wh o have also, been diagnosed with bipolar disorder. TEST RESULTS: Avtar provides valid protocol on this administration of the MMPI- 2, which describes a person who has endorsed to items in an open honest fashion. He attains a significant elevation on the paranoia scale (T = 80) as well as on the hypomania scale (T = 65). His testing presently suppor ts the symptoms described upon his admission where he was experiencing paranoid mentation in the cont ext of a manic episode. Discussion with Avtar reveals positive insights regarding awareness of man ic symptomatology including decreased need for sleep including what sounds to be sleep erosion proces s where he sleeps 3 to 4 hours at night for a period of time and then experiences encroaching symptom s. IMPRESSION AND RECOMMENDATIONS: Avtar impresses as likely to comply with recommended medications d espite his resentment and frustrations in having to take medication. He also impresses as likely to benefit from ongoing cognitive behavioral individual psychotherapy as a means of providing educationa l interventions regarding how to effectively treat dominik as well as in regards to emotional supports. Diagnostic impression supports bipolar 1 disorder with the current episode reflecting dominik, severe , with psychotic features. Continuing treatments should also reinforce importance of sobriety in the context of recovery. [id number]/[facility] #: [id number]
== END 2018-07-16 12:16 | disposition home or self-care (01) | DRG 753 ==
LOC: ED 10:46 → BSU 14:48
PROVIDERS: ADMIT Psychiatry & Neurology Psychiatry; ATTEND Psychiatry & Neurology Psychiatry
DX: F31.2 Bipolar disorder, current episode manic severe with psychotic features (principal); F10.21 Alcohol dependence, in remission; F41.9 Anxiety disorder, unspecified; F12.20 Cannabis dependence, uncomplicated; I10 Essential (primary) hypertension; Z81.8 Family history of other mental and behavioral disorders
CPT/HCPCS: 36415; 80048; 80053; 80061; 80076; 80164; 80307; 80320; 80329; 81003; 83036; 84443; 85025; 90853; 99222; 99231; 99232; 99238; 99283; A9270-GY; G0480